=== PATIENT | male | born 1940 | race Caucasian/White ===

== ENCOUNTER → 2016-10-07 | Outpatient (CLI) | payer OTHER ==
[2014-11-01 09:46] VITALS: BP 133/70
[~2016-10-07] MED LIST: ACET325T21 PO; ALLO300T PO; AMOX500C PO; ASPI325T4 PO; ATOR10TA60 PO; FERR134T2 PO; FLUT10SP NS; GLUC1500 PO; LEVO750T31 PO; LISI10TA2 PO; MELO-150 PO; MULT-460 PO; OMEG300C PO; OMEP40CA5 PO; SIMV20TA3 PO; TEMA30CA PO; TEST200V3 IM; TRIA1TAB3 PO; ZOLP10TA4 PO
--- NOTE | 2016-10-07 16:05 | KCIC ---
PROCEDURE Chest 2 views. HISTORY Dyspnea on exertion. COMPARISON 05/19/2014. FINDINGS Mild opacity in the left base is most likely atelectasis or scarring. There are no confluent infiltrates. There is no pneumothorax or pleural effusion. The heart is not enlarged. The aorta is tortuous. There are bilateral total shoulder arthroplasties. IMPRESSION - No confluent infiltrates. Electronically signed by: Panfilo Hayden (Oct 07, 2016 15:59:45)
== END | disposition home or self-care (01) ==
LOC: KCIC 14:00
PROVIDERS: ATTEND Nurse Practitioner Family
DX: R06.09 Other forms of dyspnea (principal); Q25.46 Tortuous aortic arch
CPT/HCPCS: 71020

== ENCOUNTER → 2016-10-22 | Outpatient (CLI) | payer OTHER ==
[2014-11-01 09:46] VITALS: BP 133/70
--- NOTE | 2016-10-22 15:22 | CARD ---
APPROVED REPORT EXAM: Two-dimensional and M-mode echocardiogram with Doppler and color Doppler. Other Information Quality : GoodHR: 52bpm Rhythm : PVC's,Bradycardia INDICATION Dyspnea Fatigue Ventricular Bigeminy, RBBB 2D DIMENSIONS RVDd3.1 (2.9-3.5cm)Left Atrium(2D)4.2 (1.6-4.0cm) IVSd1.2 (0.7-1.1cm)Aortic Root(2D)3.3 (2.0-3.7cm) LVDd6.8 (3.9-5.9cm)LVOT Diameter2.4 (1.8-2.4cm) PWd1.3 (0.7-1.1cm)LVDs5.2 (2.5-4.0cm) FS (%) 23.0 %SV106.0 ml LVEF(%)45.0 (>50%) Aortic Valve AoV Peak Jeremy.202.1cm/sAoV VTI53.3cm AO Peak GR.16.3mmHgLVOT Peak Jeremy.94.4cm/s LVOT VTI 23.78cmAO Mean GR.11mmHg RUT (VMAX)1.34by3NGK (VTI)1.96cm2 Mitral Valve MV E Bseqqnkf24.2cm/sMV E Peak Gr.147mmHg MV DECEL [id number] A Ubotkshd39.7cm/s MV E Mean Gr.1mmHgMV DMI37ux E/A Ratio1.2MVA (PHT)2.61cm2 TDI E/Lateral E'8.5E/Medial E'11.3 Pulmonary Valve PV Peak Fuwmvgok34.2cm/sPV Peak Grad.4mmHg Tricuspid Valve TR P. Blbjmgzm566lc/sRAP KXBPLZVY9whOp TR Peak Gr.65kqMbOKCI59ypMy Pulmonary Vein S1 Ucgmjlmm60.8cm/sD2 Xewkkbas38.4cm/s PVa aibnnhty39zvxc LEFT VENTRICLE The Left Ventricle is mildly dilated. There is mild concentric left ventricular hypertrophy. Left jenny tricle systolic function is mildly impaired. The Ejection Fraction is 45%. There is global hypokinesi s of the left ventricle. Transmitral Doppler flow pattern is Grade II-pseudonormal filling dynamics. RIGHT VENTRICLE The right ventricle is normal size. There is normal right ventricular wall thickness. The right ventr icular systolic function is normal. ATRIA The left atrium is moderately dilated. The right atrium is mildly dilated. The interatrial septum is intact with no evidence for an atrial septal defect or patent foramen ovale as noted on 2-D or Dopple r imaging. AORTIC VALVE The aortic valve is mildly sclerotic. The aortic valve is trileaflet. Doppler and Color Flow revealed mild aortic regurgitation. There is no significant aortic valvular stenosis. MITRAL VALVE Mitral annular calcification is mild. The mitral valve leaflets are thickened. There is no evidence o f mitral valve prolapse. There is no mitral valve stenosis. Doppler and Color Flow revealed moderate mitral regurgitation. TRICUSPID VALVE Doppler and Color Flow revealed mild tricuspid regurgitation. There is mild pulmonary hypertension. T he PA pressure was estimated at 33 mmHg. PULMONIC VALVE The pulmonic valve is not well visualized. Doppler and Color Flow revealed no pulmonic valvular regur gitation. GREAT VESSELS The aortic root is normal in size. The ascending aorta is normal in size. The pulmonary artery is nor mal. The IVC is normal in size and collapses >50% with inspiration. PERICARDIAL EFFUSION There is no evidence of significant pericardial effusion. Critical Notification Critical Value: No <Conclusion> Left ventricle systolic function is mildly impaired. The Ejection Fraction is 45%. Transmitral Doppler flow pattern is Grade II-pseudonormal filling dynamics. The Left Ventricle is mildly dilated. The left atrium is moderately dilated. The right atrium is mildly dilated. Doppler and Color Flow revealed mild aortic regurgitation. The aortic valve is mildly sclerotic. The aortic valve is trileaflet. Doppler and Color Flow revealed moderate mitral regurgitation. Mitral annular calcification is mild. The mitral valve leaflets are thickened. Doppler and Color Flow revealed mild tricuspid regurgitation. There is mild pulmonary hypertension. The PA pressure was estimated at 33 mmHg. The pulmonic valve is not well visualized. There is no evidence of significant pericardial effusion.
== END | disposition home or self-care (01) ==
LOC: ECHO 09:09
PROVIDERS: ATTEND Internal Medicine Cardiovascular Disease
DX: R53.83 Other fatigue (principal); R06.02 Shortness of breath; I49.9 Cardiac arrhythmia, unspecified; I45.2 Bifascicular block; R06.00 Dyspnea, unspecified
CPT/HCPCS: 93225; 93306

== ENCOUNTER → 2016-11-14 | Outpatient (CLI) | payer OTHER ==
[2014-11-01 09:46] VITALS: BP 133/70
--- NOTE | 2016-11-18 10:20 | EKG ---
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
== END | disposition home or self-care (01) ==
LOC: EKG 08:49
PROVIDERS: ATTEND Internal Medicine Cardiovascular Disease
DX: I48.1 Persistent atrial fibrillation (principal); I49.5 Sick sinus syndrome
CPT/HCPCS: 93225

== ENCOUNTER → 2016-11-26 | Outpatient (CLI) | payer OTHER ==
[2014-11-01 09:46] VITALS: BP 133/70
[2016-11-26 15:44] LABS: BASO % 1 % (0-3); EOS % 5 % (0-3); HEMATOCRIT 47.2 % (39.0-53.0); HEMOGLOBIN 15.7 g/dL (13.0-17.5); LYMPH # 1.7 x10^3/uL (1.0-4.8); LYMPH % 28 % (24-48); MEAN CORPUSCULAR HEMOGLOBIN 32 pg (25-35); MEAN CORPUSCULAR HGB CONC 33 g/dL (31-37); MEAN CORPUSCULAR VOLUME 95 fL (79-100); MONO % 12 % (0-9); NEUT % 54 % (31-73); PLATELET COUNT 138 x10^3/uL (140-400); RED BLOOD COUNT 4.99 x10^6/uL (4.30-5.70); RED CELL DISTRIBUTION WIDTH 15.7 % (11.5-14.5); WHITE BLOOD COUNT 5.9 x10^3/uL (4.0-11.0)
[2016-11-26 15:52] LABS: INR 1.2 (0.8-1.1)
== END | disposition home or self-care (01) ==
LOC: LAB 15:19
PROVIDERS: ATTEND Internal Medicine Cardiovascular Disease
DX: R53.83 Other fatigue (principal); R21 Rash and other nonspecific skin eruption
CPT/HCPCS: 36415; 85027; 85610; 85651; 85730

== ENCOUNTER 2017-04-12 07:37 | Emergency (ER) | payer OTHER ==
[~2017-04-12] VITALS: Ht 190.5 cm; Wt 117.9 kg
[~2017-04-12 07:37] MED LIST changes: -ASPI325T4 PO; +ASPI325T8 PO; -MELO-150 PO; +MELO15TA23 PO
[2017-04-12 07:45] VITALS: BP 149/81
[2017-04-12] MEDS ORDERED: NAPR220C4 PO (08:13)
[2017-04-12] MEDS ORDERED: OMEG-97 PO (08:13)
[2017-04-12] MEDS ORDERED: ASPI-482 PO (08:13)
[2017-04-12] MEDS ORDERED: FLUT16SP NS (08:13)
[2017-04-12] MEDS ORDERED: LISI10TA2 PO (08:13)
[2017-04-12] MEDS ORDERED: TEMA30CA PO (08:13)
[2017-04-12] MEDS ORDERED: AMOX500C PO (08:13)
[2017-04-12] MEDS ORDERED: APIX5TAB PO (08:13)
[2017-04-12] MEDS ORDERED: PROP20TA PO (08:13)
--- NOTE | 2017-04-12 08:16 | PHYS DOC ---
Past Medical History Past Medical History: A-Fib, Arthritis, GERD, High Cholesterol, Hypertension, Kidney Stone, Other Additional Past Medical Histor: gout Past Surgical History: Knee Replacement, Other Additional Past Surgical Histo: back surgery, 2 shoulder replacements Alcohol Use: Heavy Additional Information: reports drinking 2 drinks every night Drug Use: None Adult General Chief Complaint Chief Complaint: FOOT INJURY PAIN [facility] HPI Is is a pleasant 76-year-old male with history of hypertension, high cholesterol , kidney stones requiring allopurinol treatment who presents with right foot pain that began yesterday after a long day of exercise and walking. He says he normally exercises 2-3 times a week walking [place] but yesterday after going to a car show at a private residence walking [employer] patient developed pain on his ankle specifically under the heel radiating into the arch of the foot. He denies any specific injury, denies any significant numbness or tingling, denies any circulatory color changes or localized pain other than what is described in his history. He describes the same as sharp and stabbing lancinating in nature lasting 3-5 seconds in waves. He denies any localized swelling, denies any rash, he does have a history of chronic arthritis within big toe and ankle. This is different. He denies any fevers, chills, recent travel outside the country, swelling in his calves or pain in his lower legs. Review of Systems Review of Systems Constitutional: Denies fever or chills [] Eyes: Denies change in visual acuity, redness, or eye pain [] HENT: Denies nasal congestion or sore throat [] Respiratory: Denies cough or shortness of breath [] Cardiovascular: No additional information not addressed in HPI [] GI: Denies abdominal pain, nausea, vomiting, bloody stools or diarrhea [] : Denies dysuria or hematuria [] Musculoskeletal: Complains of chronic lower back pain chronic joint pain in his shoulders bilaterally and his right knee. Integument: Denies rash or skin lesions [] Neurologic: Denies headache, focal weakness or sensory changes [] Endocrine: Denies polyuria or polydipsia [] Allergies Allergies Allergies Coded Allergies Type Severity Reaction Last Updated Verified No Known Drug Allergies 10/16/14 No Physical Exam Physical Exam This patient's vital signs been reviewed hypertension noted without any other abnormality. Constitutional: Well developed, well nourished, no acute distress, non-toxic appearance. [] Cardiovascular:Heart rate regular rhythm, no murmur [] Lungs & Thorax: Bilateral breath sounds clear to auscultation [] Abdomen: Bowel sounds normal, soft, no tenderness, no masses, no pulsatile masses. [] Skin: Warm, dry, no erythema, no rash. Patient has brisk capillary refill +2 brisk peripheral pulses at the dorsalis pedis and posterior tibialis and popliteal artery. Skin is warm without cyanosis. Extremities: No tenderness, no cyanosis, no clubbing, no edema. No significant decreased range of motion in the foot secondary to pain on plantar flexion. Pain is elicited along the plantar fascia from the heel to the base of the fourth metatarsal. There is no obvious swelling, there is no obvious redness or rash. Patient has no Homans sign no evidence of swelling within the gastrocnemius muscles bilaterally. Neurologic: Alert and oriented X 3, normal motor function, normal sensory function, no focal deficits noted. [] Psychologic: Affect normal, judgement normal, mood normal. [] Current Patient Data Vital Signs Vital Signs Date Time Temp Pulse Resp B/P (MAP) Pulse Ox O2 Delivery O2 Flow Rate FiO2 04/12/17 07:45 98.2 70 20 149/81 (103) 96 Room Air 98.2 EKG EKG [] Radiology/Procedures Radiology/Procedures [] [address] [place] [address] IMAGING REPORT Signed PATIENT: VERNELL AGUDELO ACCOUNT: [id number] : 1940 LOCATION: ER AGE: 76 SEX: M EXAM STATUS: REG ER ORD. PHYSICIAN: KONRAD SIMMONS MD REASON: foot pain PROCEDURE: ANKLE RIGHT 3V Right ankle 3 views. History: Pain 3 views were taken of the right ankle. There is extensive vascular calcification. There is no fracture or bony destructive process at the ankle. Impression: 1. No acute osseous abnormality noted at the right ankle. DICTATED and SIGNED BY: VERNELL DUNBAR MD DATE: 04/12/17 0830 CC: KONRAD SIMMONS MD; ABIODUN LYMAN MD ~ IMAGING REPORT Signed PATIENT: VERNELL AGUDELO ACCOUNT: [id number] : 1940 LOCATION: ER AGE: 76 SEX: M EXAM STATUS: REG ER ORD. PHYSICIAN: KONRAD SIMMONS MD REASON: foot pain PROCEDURE: FOOT RIGHT 3V Right foot 3 views. History: Foot pain, no injury 3 views were taken of the right foot. There is arthritis at the first metatarsal phalangeal joint with spurring and joint space narrowing. There is no fracture or bony destructive process. There is vascular calcification. Impression: 1. Arthritis first metatarsal phalangeal joint. 2. No fracture or other acute osseous abnormality. DICTATED and SIGNED BY: VERNELL DUNBAR MD DATE: 04/12/17828 CC: KONRAD SIMMONS MD; ABIODUN LYMAN MD ~ [address] [facility] [place] [address] IMAGING REPORT Signed PATIENT: VERNELL AGUDELO ACCOUNT: [id number] : 1940 LOCATION: ER AGE: 76 SEX: M EXAM STATUS: REG ER ORD. PHYSICIAN: KONRAD SIMMONS MD REASON: non traumatic right foot pain PROCEDURE: DUPLEX LOWER EX ARTERIAL RIGHT Right lower extremity arterial Doppler study. History: Nontraumatic right foot pain. Duplex ultrasound was used to evaluate the arteries of the right lower extremity. Real-time imaging, color-flow imaging and spectral Doppler with velocity determinations were utilized. Velocity in the common femoral artery was 73 cm/s with a normal triphasic waveform. There is flow in the deep femoral artery with a velocity of 73 cm/s with a normal triphasic waveform. Triphasic waveforms are noted throughout the femoral artery with a velocity of 77 cm/s in the distal femoral artery. Popliteal artery appeared patent with a normal triphasic waveform with a velocity of 93 cm/s. There is a triphasic waveform with a velocity of 125 cm/s in the distal posterior tibial artery. Peroneal artery had a triphasic waveform. There is a triphasic waveform at the anterior tibial artery with a velocity of 117 cm/s. There is a triphasic waveform at the dorsalis pedis artery with velocity 114 cm/s. Impression: 1. Normal arterial Doppler of the right lower extremity without evidence of severe stenosis or occlusive disease. DICTATED and SIGNED BY: VERNELL DUNBAR MD DATE: 04/12/17939 CC: KONRAD SIMMONS MD; ABIODUN LYMAN MD ~ Course & Med Decision Making Course & Med Decision Making Pertinent Labs and Imaging studies reviewed. (See chart for details) and sitting patient's prior medical problems history of nontraumatic foot pain we will conduct x-rays of the ankle and foot. I will also document an SUSAN to ensure that there is no vascular compromise lumen arterial origin. Doubt DVT as patient is oriented blood thinning medication prescribed at age or fibrillation. Patient has good circulation on my examination with good capillary refill, brisk peripheral pulses documented on my physical exam. Patient also demonstrates normal skin tone without rash. [] IMAGING REPORT Signed PATIENT: VERNELL AGUDELO ACCOUNT: [id number] : 1940 LOCATION: ER AGE: 76 SEX: M EXAM STATUS: REG ER ORD. PHYSICIAN: KONRAD SIMMONS MD REASON: foot pain PROCEDURE: FOOT RIGHT 3V Right foot 3 views. History: Foot pain, no injury 3 views were taken of the right foot. There is arthritis at the first metatarsal phalangeal joint with spurring and joint space narrowing. There is no fracture or bony destructive process. There is vascular calcification. Impression: 1. Arthritis first metatarsal phalangeal joint. 2. No fracture or other acute osseous abnormality. DICTATED and SIGNED BY: VERNELL DUNBAR MD DATE: 04/12/17828 CC: KONRAD SIMMONS MD; ABIODUN LYMAN MD ~ Time is now 9:55 AMPatient tells me that their symptoms given during CC are improved. I reviewed radiology reports with patient and family at the bedside and talked to them about the differential diagnosis of my concern. There is no obvious signs of fracture but I'll place him in a hard shoe and given some crutches to get off the foot and refer him to podiatry. He may be suffering from early plantar fasciitis. May benefit from a short course of anti- inflammatories and some of her breakthrough pain. I doubt compartment syndrome or DVT or arterial compromise. Impression: Right foot pain of unclear etiology possibly plantar fasciitis. Disposition: PCP follow-up in 24-48 hours for repeat evaluation as well as referral to podiatry. There is presently no evidence of vascular compromise on this evaluation. Dragon Disclaimer Dragon Disclaimer This electronic medical record was generated, in whole or in part, using a voice recognition dictation system. Departure Departure Impression: Primary Impression: Acute pain of right foot Additional Impressions: Arch pain of right foot Plantar fasciitis of right foot Referrals: ABIODUN LYMAN MD (PCP) Patient Instructions: Foot Sprain, Plantar Fasciitis Additional Instructions: Please use the hard shoe and crutches to get off the foot. I would advise a follow-up with her primary care doctor for referral to podiatry for continued management of her symptoms. Return if there is any new or increasing symptoms or he have any questions or concerns. Scripts Tramadol Hcl/Acetaminophen (TRAMADOL-ACETAMINOPHN 37.5-325) 1 Each Tablet 1-2 TAB PO Q4-6HRS, #10 TAB Prov: KONRAD SIMMONS MD 04/12/17 Problem Qualifiers KONRAD SIMMONS MD Apr 12, 2017 08:16
--- NOTE | 2017-04-12 08:33 | RAD ---
Right foot 3 views. History: Foot pain, no injury 3 views were taken of the right foot. There is arthritis at the first metatarsal phalangeal joint with spurring and joint space narrowing. There is no fracture or bony destructive process. There is vascular calcification. Impression: 1. Arthritis first metatarsal phalangeal joint. 2. No fracture or other acute osseous abnormality.
--- NOTE | 2017-04-12 08:33 | RAD ---
Right ankle 3 views. History: Pain 3 views were taken of the right ankle. There is extensive vascular calcification. There is no fracture or bony destructive process at the ankle. Impression: 1. No acute osseous abnormality noted at the right ankle.
--- NOTE | 2017-04-12 09:46 | RAD ---
Right lower extremity arterial Doppler study. History: Nontraumatic right foot pain. Duplex ultrasound was used to evaluate the arteries of the right lower extremity. Real-time imaging, color-flow imaging and spectral Doppler with velocity determinations were utilized. Velocity in the common femoral artery was 73 cm/s with a normal triphasic waveform. There is flow in the deep femoral artery with a velocity of 73 cm/s with a normal triphasic waveform. Triphasic waveforms are noted throughout the femoral artery with a velocity of 77 cm/s in the distal femoral artery. Popliteal artery appeared patent with a normal triphasic waveform with a velocity of 93 cm/s. There is a triphasic waveform with a velocity of 125 cm/s in the distal posterior tibial artery. Peroneal artery had a triphasic waveform. There is a triphasic waveform at the anterior tibial artery with a velocity of 117 cm/s. There is a triphasic waveform at the dorsalis pedis artery with velocity 114 cm/s. Impression: 1. Normal arterial Doppler of the right lower extremity without evidence of severe stenosis or occlusive disease.
[2017-04-12] MEDS ORDERED: TRAM1TAB4 PO (09:59)
== END 2017-04-12 10:24 | disposition home or self-care (01) ==
LOC: ER 07:37
DX: M72.2 Plantar fascial fibromatosis (principal); I10 Essential (primary) hypertension; I48.91 Unspecified atrial fibrillation; M10.9 Gout, unspecified; K21.9 Gastro-esophageal reflux disease without esophagitis; E78.00 Pure hypercholesterolemia, unspecified; F10.10 Alcohol abuse, uncomplicated; M19.90 Unspecified osteoarthritis, unspecified site; G89.29 Other chronic pain; Z87.442 Personal history of urinary calculi; Z96.659 Presence of unspecified artificial knee joint
CPT/HCPCS: 73610; 73630; 93926; 99284

== ENCOUNTER 2017-04-20 14:30 | Inpatient (IN) | payer OTHER ==
[~2017-04-20] VITALS: Ht 190.5 cm; Wt 116.6 kg
[~2017-04-20 14:30] MED LIST changes: +APIX5TAB PO; +ASPI-482 PO; +FLUT16SP NS; +NAPR220C4 PO; +OMEG-97 PO; +PROP20TA PO; +TRAM1TAB4 PO
[2017-04-20 15:40] VITALS: BP 113/90
[2017-04-20] MEDS ORDERED: oxyCODONE/APAP 5/325 1 TAB TABLET PO PRN (17:15)
[2017-04-20] MEDS ORDERED: NAPROXEN SODIUM 440 MG PO PRN (17:15)
[2017-04-20] MEDS ORDERED: COLCHICINE 0.6 MG TABLET PO ONE (17:30)
[2017-04-20] MEDS ORDERED: VANCOMYCIN 2 GM in IV NORMAL SALINE 500ML BAG 500 ML IV ONE (17:30)
[2017-04-20] MEDS: LISINOPRIL 10 MG TABLET PO SCH (17:50)
[2017-04-20] MEDS: PANTOPRAZOLE 40 MG TABLET.DR. PO SCH (17:52)
[2017-04-20 18:20] LABS: BASO # 0.1 x10^3/uL (0.0-0.2); BASO % 1 % (0-3); EOS % 1 % (0-3); HEMATOCRIT 43.3 % (39.0-53.0); HEMOGLOBIN 14.3 g/dL (13.0-17.5); LYMPH # 1.3 x10^3/uL (1.0-4.8); LYMPH % 15 % (24-48); MEAN CORPUSCULAR HEMOGLOBIN 32 pg (25-35); MEAN CORPUSCULAR HGB CONC 33 g/dL (31-37); MEAN CORPUSCULAR VOLUME 97 fL (79-100); MONO % 7 % (0-9); NEUT % 77 % (31-73); PLATELET COUNT 208 x10^3/uL (140-400); RED BLOOD COUNT 4.45 x10^6/uL (4.30-5.70); RED CELL DISTRIBUTION WIDTH 14.7 % (11.5-14.5); WHITE BLOOD COUNT 8.9 x10^3/uL (4.0-11.0)
--- NOTE | 2017-04-20 18:23 | EKG ---
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
[2017-04-20 18:36] VITALS: BP 113/90
[2017-04-20 18:42] LABS: ALBUMIN 2.5 g/dL (3.4-5.0); ALBUMIN/GLOBULIN RATIO 0.6 (1.0-1.7); C-REACTIVE PROTEIN 137.1 mg/L (0-3.3); CALCIUM 8.7 mg/dL (8.5-10.1); CREATININE 1.2 mg/dL (0.7-1.3); POTASSIUM 3.9 mmol/L (3.5-5.1); TOTAL BILIRUBIN 0.5 mg/dL (0.2-1.0); URIC ACID 3.1 mg/dL (3.5-7.2)
[2017-04-20] MEDS: VANCOMYCIN PER PHARMACY MC PRN (18:50)
[2017-04-20 19:00] VITALS: BP 132/70
--- NOTE | 2017-04-20 19:02 | PDOC1 ---
History and Physical Date of Admission Date of Admission DATE: 04/20/17 TIME: 18:54 Identification/Chief Complaint Chief Complaint r ankle pain Problems: Source Source: Chart review, Patient History of Present Illness History of Present Illness pt sent from Dr. Mary meehan for right ankle pain and redness with worsening swelling. PT had acute right ankle pain last week, seen in clinic then, aspirated joint , started on colchicine and steroids, and abx given. Hx of gout, flare seemed likely, now returns with worsening pain and swelling and redness to the right ankle. Pain Ok at rest, but severe 8/10 pain when standing and marked difficulty walking, no fevers or chills or sweats Past Medical History Cardiovascular: HTN GI: GERD Musculoskeletal: low back pain Rheumatologic: Gout Family History Family History: Coronary Artery Disease Social History Smoke: No ALCOHOL: none Drugs: None Current Medications Current Medications Current Medications Acetaminophen (Tylenol) 650 mg QHS PO ; Start 04/20/17 at 21:00 Apixaban (Eliquis) 5 mg BID PO ; Start 04/20/17 at 21:00 Aspirin (Ecotrin) 81 mg DAILY PO ; Start 04/21/17 at 09:00 Atorvastatin Calcium (Lipitor) 10 mg QHS PO ; Start 04/20/17 at 21:00 Fluticasone Propionate (Flonase) 2 spray DAILY NS ; Start 04/21/17 at 09:00 Lisinopril (Prinivil) 10 mg DAILY PO Last administered on 04/20/17 17:50; Start 04/20/17 at 17:30 Temazepam (Restoril) 30 mg QHS PO ; Start 04/20/17 at 21:00 Meloxicam (Mobic) 15 mg DAILY PO ; Start 04/21/17 at 09:00 Multivitamins (Thera M Plus) 1 tab DAILY PO ; Start 04/21/17 at 09:00 Non-Formulary Medication 440 mg QHS PRN PO PAIN; Start 04/20/17 at 17:15; Status UNV Fish Oil (Fish Oil) 1,000 mg BID PO ; Start 04/20/17 at 21:00 Pantoprazole Sodium (Protonix) 40 mg DAILYAC PO Last administered on 04/20/17 17:52; Start 04/20/17 at 17:30 Propranolol HCl (Inderal) 20 mg BID PO ; Start 04/20/17 at 21:00 Vancomycin HCl (Vanco Per Pharmacy) 1 each PRN DAILY PRN MC SEE COMMENTS Last administered on 04/20/17 18:50; Start 04/20/17 at 17:15 Colchicine (Colcrys) 0.6 mg 1X ONCE PO Last administered on 04/20/17 17:50; Start 04/20/17 at 17:30; Stop 04/20/17 at 17:31; Status DC Colchicine (Colcrys) 0.6 mg DAILY PO ; Start 04/21/17 at 09:00 Oxycodone/ Acetaminophen (Percocet 5/325) 1 tab PRN Q4HRS PRN PO PAIN Last administered on 04/20/17 17:53; Start 04/20/17 at 17:15 Vancomycin HCl 2 gm/Sodium Chloride 500 ml @ 250 mls/hr 1X ONCE IV Last administered on 04/20/17 17:54; Start 04/20/17 at 17:30; Stop 04/20/17 at 19:29 Vancomycin HCl 1.75 gm/Sodium Chloride 500 ml @ 250 mls/hr Q12H IV ; Start at 06:00 Vancomycin HCl 1 each 1X ONCE MC ; Start 04/22/17 at 05:30; Stop 04/22/17 at 05 :31 Active Scripts Active Tramadol-Acetaminophn 37.5-325 (Tramadol Hcl/Acetaminophen) 1 Each Tablet 1-2 Tab PO Q4-6HRS Reported Fluticasone Propionate Nasal Gooding (Fluticasone Propionate) 16 Gm Gooding.susp 2 Gooding NS DAILY Eliquis (Apixaban) 5 Mg Tablet 5 Mg PO BID Temazepam 30 Mg Capsule 1 Cap PO QHS Amoxicillin 500 Mg Capsule 3 Cap PO 1X Aleve (Naproxen Sodium) 220 Mg Capsule 440 Mg PO QHS PRN Propranolol Hcl 20 Mg Tablet 1 Tab PO BID Lisinopril 10 Mg Tablet 1 Tab PO DAILY [facility] Fish Oil 1,200 Mg Softgel ([place]pton-3 Fatty Acids/Fish Oil) 1 Each Capsule 1 Each PO BID Aspir 81 (Aspirin) 81 Mg Tablet.dr 1 Tab PO DAILY Meloxicam 15 Mg Tablet 15 Mg PO DAILY Last dose given: 9:00 a.m. (celebrex) Next dose due: 11-02-14 9:00 a.m. Atorvastatin Calcium 10 Mg Tablet 10 Mg PO DAILY Last dose given: 10-31-14 Next dose due: tonight Glucosamine Hcl 1,500 Mg Tablet 1,500 Mg PO DAILY Not taken while in hosp. May resume at home as directed Omeprazole 40 Mg Capsule.dr 40 Mg PO BID Last dose given: 7:00 a.m. Next dose due: 11-02-14 7:00 a.m. Testosterone Cypionate 200 Mg/1 Ml Vial 200 Mg IM Q2WKS Not taken while in hosp. May resume at home as directed Multiple Vitamin (Multivitamin With Minerals) 1 Each Tablet 1 Each PO DAILY Last dose given: 9:00 a.m. Next dose due: 11-02-14 9:00 a.m. Allopurinol 300 Mg Tablet 300 Mg PO DAILY Last dose given: 9:00 a.m. Next dose due: 11-02-13 9:00 a.m. Acetaminophen 325 Mg Tablet 650 Mg PO QHS Not taken while in hosp May resume at home as directed as needed. Allergies Allergies: Coded Allergies: No Known Drug Allergies (Unverified , 10/16/14) ROS General: No: Chills, Night Sweats, Fatigue, Malaise, Appetite, Other PSYCHOLOGICAL ROS: No: Anxiety, Behavioral Disorder, Concentration difficultie , Decreased libido, Depression, Disorientation, Hallucinations, Hostility, Irritablity, Memory difficulties, Mood Swings, Obsessive thoughts, Other Eyes: No Blurry vision, No Decreased vision, No Double vision, No Dry eyes, No Excessive tearing, No Eye Pain, No Itchy Eyes, No Loss of vision, No Photophobia , No Scotomata, No Uses contacts, No Uses glasses, No Other HEENT: No: Heacaches, Visual Changes, Hearing change, Nasal congestion, Nasal discharge, Oral lesions, Sinus pain, Sore Throat, Epistaxis, Sneezing, Snoring, Tinnitus, Vertigo, Vocal changes, Other Respiratory: No: Cough, Hemoptysis, Orthopnea, Pleuritic Pain, Shortness of breath, SOB with excertion, Sputum Changes, Stridor, Tachypnea, Wheezing, Other Cardiovascular: No Chest Pain, No Palpitations, No Orthopnea, No Paroxysmal Noc. Dyspnea, No Edema, No Lt Headedness, No Other Gastrointestinal: No Nausea, No Vomiting, No Abdominal Pain, No Diarrhea, No Constipation, No Melena, No Hematochezia, No Other Genitourinary: No Dysuria, No Frequency, No Incontinence, No Hematuria, No Retention, No Discharge, No Urgency, No Pain, No Flank Pain, No Other, No , No , No , No , No , No , No Musculoskeletal: Yes Gait Disturbance, Yes Joint Pain, Yes Joint Stiffness Neurological: Yes Gait Disturbance, No Behavorial Changes, No Bowel/Bladder ControlChng, No Confusion, No Headaches, No Impaired Coord/balance, No Memory Loss, No Numbness/Tingling, No Seizures, No Speech Problems, No Tremors, No Visual Changes, No Weakness, No Other Skin: No Dry Skin, No Eczema, No Hair Changes, No Lumps, No Mole Changes, No Mottling, No Nail Changes, No Pruritus, No Rash, No Skin Lesion Changes, No Other, No Acne Physical Exam General: Alert, Oriented X3, Cooperative HEENT: Atraumatic, PERRLA Lungs: Clear to auscultation Heart: S1S2, irregularly irregular Abdomen: Normal bowel sounds, Soft Extremities: No clubbing, No edema, Normal pulses Skin: No rashes, No breakdown Neuro: Normal speech, Sensation intact Psych/Mental Status: Mental status NL, Mood NL Vitals Vitals Vital Signs Date Time Temp Pulse Resp B/P (MAP) Pulse Ox O2 Delivery O2 Flow Rate FiO2 04/20/17 18:36 97.6 53 18 113/90 (98) 96 Room Air 97.6 Labs Labs Laboratory Tests Test 04/20/17 18:00 White Blood Count 8.9 x10^3/uL (4.0-11.0) Red Blood Count 4.45 x10^6/uL (4.30-5.70) Hemoglobin 14.3 g/dL (13.0-17.5) Hematocrit 43.3 % (39.0-53.0) Mean Corpuscular Volume 97 fL (79-100) Mean Corpuscular Hemoglobin 32 pg (25-35) Mean Corpuscular Hemoglobin Concent 33 g/dL (31-37) Red Cell Distribution Width 14.7 % (11.5-14.5) Platelet Count 208 x10^3/uL (140-400) Neutrophils (%) (Auto) 77 % (31-73) Lymphocytes (%) (Auto) 15 % (24-48) Monocytes (%) (Auto) 7 % (0-9) Eosinophils (%) (Auto) 1 % (0-3) Basophils (%) (Auto) 1 % (0-3) Neutrophils # (Auto) 6.8 x10^3uL (1.8-7.7) Lymphocytes # (Auto) 1.3 x10^3/uL (1.0-4.8) Monocytes # (Auto) 0.6 x10^3/uL (0.0-1.1) Eosinophils # (Auto) 0.1 x10^3/uL (0.0-0.7) Basophils # (Auto) 0.1 x10^3/uL (0.0-0.2) Sodium Level 139 mmol/L (136-145) Potassium Level 3.9 mmol/L (3.5-5.1) Chloride Level 102 mmol/L (98-107) Carbon Dioxide Level 28 mmol/L (21-32) Anion Gap 9 (6-14) Blood Urea Nitrogen 23 mg/dL (8-26) Creatinine 1.2 mg/dL (0.7-1.3) Estimated GFR (Cockcroft-Gault) 59.0 BUN/Creatinine Ratio 19 (6-20) Glucose Level 139 mg/dL (70-99) Uric Acid 3.1 mg/dL (3.5-7.2) Calcium Level 8.7 mg/dL (8.5-10.1) Total Bilirubin 0.5 mg/dL (0.2-1.0) Aspartate Amino Transf (AST/SGOT) 16 U/L (15-37) Alanine Aminotransferase (ALT/SGPT) 21 U/L (16-63) Alkaline Phosphatase 53 U/L (46-116) C-Reactive Protein, Quantitative 137.1 mg/L (0-3.3) Total Protein 7.0 g/dL (6.4-8.2) Albumin 2.5 g/dL (3.4-5.0) Albumin/Globulin Ratio 0.6 (1.0-1.7) Laboratory Tests Test 04/20/17 18:00 White Blood Count 8.9 x10^3/uL (4.0-11.0) Red Blood Count 4.45 x10^6/uL (4.30-5.70) Hemoglobin 14.3 g/dL (13.0-17.5) Hematocrit 43.3 % (39.0-53.0) Mean Corpuscular Volume 97 fL (79-100) Mean Corpuscular Hemoglobin 32 pg (25-35) Mean Corpuscular Hemoglobin Concent 33 g/dL (31-37) Red Cell Distribution Width 14.7 % (11.5-14.5) Platelet Count 208 x10^3/uL (140-400) Neutrophils (%) (Auto) 77 % (31-73) Lymphocytes (%) (Auto) 15 % (24-48) Monocytes (%) (Auto) 7 % (0-9) Eosinophils (%) (Auto) 1 % (0-3) Basophils (%) (Auto) 1 % (0-3) Neutrophils # (Auto) 6.8 x10^3uL (1.8-7.7) Lymphocytes # (Auto) 1.3 x10^3/uL (1.0-4.8) Monocytes # (Auto) 0.6 x10^3/uL (0.0-1.1) Eosinophils # (Auto) 0.1 x10^3/uL (0.0-0.7) Basophils # (Auto) 0.1 x10^3/uL (0.0-0.2) Sodium Level 139 mmol/L (136-145) Potassium Level 3.9 mmol/L (3.5-5.1) Chloride Level 102 mmol/L (98-107) Carbon Dioxide Level 28 mmol/L (21-32) Anion Gap 9 (6-14) Blood Urea Nitrogen 23 mg/dL (8-26) Creatinine 1.2 mg/dL (0.7-1.3) Estimated GFR (Cockcroft-Gault) 59.0 BUN/Creatinine Ratio 19 (6-20) Glucose Level 139 mg/dL (70-99) Uric Acid 3.1 mg/dL (3.5-7.2) Calcium Level 8.7 mg/dL (8.5-10.1) Total Bilirubin 0.5 mg/dL (0.2-1.0) Aspartate Amino Transf (AST/SGOT) 16 U/L (15-37) Alanine Aminotransferase (ALT/SGPT) 21 U/L (16-63) Alkaline Phosphatase 53 U/L (46-116) C-Reactive Protein, Quantitative 137.1 mg/L (0-3.3) Total Protein 7.0 g/dL (6.4-8.2) Albumin 2.5 g/dL (3.4-5.0) Albumin/Globulin Ratio 0.6 (1.0-1.7) VTE Prophylaxis Ordered VTE Prophylaxis Devices: Yes VTE Pharmacological Prophylaxi: No Assessment/Plan Assessment/Plan acute right ankle pain with swelling and redness concern for septic joint is high labs to include ESR and CRP, check uric acid start IV vanco check MRI Hx Gout HTn, Afib, hold eliquis, may need surgery mod malnutrition w/ hypoalbuminemia, in obesity, BMI 32 will check urine for protein wide QRS on ekg, w/ htn and afib, consult CV admit MIGDALIA CHERY MD Apr 20, 2017 19:02
[2017-04-20] MEDS ORDERED: APIXABAN 5 MG TABLET. PO SCH (21:00)
[2017-04-20] MEDS: PROPRANOLOL 10 MG TABLET. PO SCH (21:39)
[2017-04-20] MEDS: OMEGA-3 FATTY ACIDS/FISH OIL 1,000 MG CAPSULE. PO SCH (21:39)
[2017-04-20] MEDS: ATORVASTATIN CALCIUM 10 MG TABLET. PO SCH (21:40)
[2017-04-20] MEDS: TEMAZEPAM 15 MG CAPSULE PO SCH (21:40)
[2017-04-20] MEDS: ACETAMINOPHEN 325 MG TABLET. PO SCH (21:40)
[2017-04-20 23:00] VITALS: BP 122/59
--- NOTE | 2017-04-21 02:36 | ACF ---
Admission Forms Criteria MUSCULOSKELETAL DISEASE GRG Clinical Indications for Admission to Inpatient Care (Place 'X' for any and all applicable criteria): Hospital admission is needed for appropriate care of the patient because of 1 or more of the following: [ ]I. Fracture, dislocation, or other musculoskeletal injury requiring inpatient care(medical) as indicated by 1 or more of the following(4)(5)(6)(7) [ ]a) Vertebral fracture requiring observation for instability or neurologic compromise (8) [ ]b) Compartment syndrome (proven or cannot be ruled out during observation level of care) (9) [ ]c) Limb-threatening injury [ ]d) Major injury requiring inpatient stabilization such as traction initiation or external fixation before internal fixation or closure of complex or open fracture [ ]e) Major injury requiring inpatient treatment after emergency or observation level care (as appropriate) [ ]f) Severe pain requiring acute inpatient management [ ]g) Injury with suspicion of abuse or neglect (eg., child, dependent elderly) [ ]II. Newly diagnosed or suspected bone, joint, or orthopedic device infection (e.g., osteomyelitis, septic arthritis) needing 1 or more of the following(1)(2)(3) [ ]a) IV antibiotics that cannot be initiated in other than inpatient setting (e.g., patient too unstable or home infusion not available) [ ]b) Device removal or replacement [ ]c) Bone or soft tissue debridement [ ]d) Joint drainage (drain placement or repetitive aspirations) [ ]III. Severe rheumatologic disease (e.g., systemic lupus erythematosus, rheumatoid arthritis) with complications or comorbidities (Also use Optimal Recovery Care Criteria or General Recovery Criteria as appropriate on the basis of predominant condition), including 1 or more of the following( 10)(11)(12)(13) [ ]a) Severe infection (e.g., INSPECTOR TUBES infection, sepsis) (14) [ ]b) Respiratory complications, including 1 or more of the following : [ ]i) Pleural effusion with respiratory compromise [ ]ii) Pulmonary hypertension with congestive failure [ ]iii) Respiratory failure [ ]iv) Pulmonary hemorrhage (15) [ ]c) Hematologic disease, including 1 or more of the following: [ ]i) Coagulopathy with bleeding [ ]ii) Thrombosis with hypercoagulable state [ ]iii) Thrombotic thrombocytopenic purpura [ ]d) Cerebritis with seizures, psychosis, or other severe abnormalities [ ]e) Vertebral destruction with monitoring needed for cervical myelopathy& possible respiratory compromise [ ]f) Exacerbation that requires inpatient treatment (e.g., intravenous immunosuppression) (16) [ ]g) Acute renal failure [ ]h) Cerebritis with seizures, psychosis, Altered mental status, or other neurologic abnormalities [ ]i) Pericardial effusion with tamponade [ ]j) Vertebral destruction, with monitoring needed for cervical myelopathy and possible respiratory compromise [ ]IV. Severe vasculitis with complications or comorbidities (Also use Optimal Recovery Care Criteria General Recovery Criteria as appropriate on the basis of predominant condition), including 1 or more of the following(11)(12)(17)(18)(19)(20) [ ]a) Exacerbation that requires inpatient treatment (e.g., intravenous immunosuppression) (19)(21) [ ]b) Pulmonary hemorrhage (15) [ ]c) INSPECTOR TUBES vasculitis with seizures, psychosis, Altered mental status that is severe or persistent, or other severe abnormalities (22) [ ]d) Cerebral infarction [ ]e) Gastrointestinal ischemia [ ]f) Gangrene or threatened amputation [ ]g) Renal failure (16) [ ]h) Other significant complications of vasculitis ( eg., tissue or organ ischemia, organ dysfunction ) [ ]V. Severe myopathy as indicated by 1 or more of the following (28)(29) [ ]a) New onset of airway compromise or inability to swallow [ ]b) Respiratory deterioration with observation needed for impending respiratory failure [ ]c) Exacerbation that requires inpatient treatment (e.g., intravenous immunosuppression) [ ]. Severe crystal gout (arthropathy) indicated by 1 or more of the following (23)(24) [ ]a) Severe pain requiring acute inpatient management [ ]b) Exacerbation that requires inpatient treatment (e.g., intravenous treatment) [ ]VII.Rhabdomyolysis and 1 or more of the following (25)(26)(27) [ ]a) Acute renal failure [ ]b) Need for intravenous hydration after emergency or observation level care (as appropriate) [ ]c) Inability to maintain oral hydration [ ]d) Change in mental status [ ]e) Electrolyte abnormality that remains after emergency or observation level care (as appropriate) [ ]VIII Post amputation complication, as indicated by ANY ONE of the following [ ]a) Infection [ ]b) Dehiscence [ ]c) Myodesis failure [X]IX. Severe pain requiring acute inpatient management due to musculoskeletal condition [ ]X. Musculoskeletal Disease and ALL of the following: [ ]a) Symptom or finding for which emergency and observation care have failed or are not considered appropriate (Use General Criteria: Observation Care as appropriate) [ ]b) Presence of ANY ONE of the following [ ]i) A General Admission Criteria [ ]ii) A Pediatric General Admission Criteria The original [facility] content created by [facility] has been revised. The portions of the content which have been revised are identified through the use of italic text or in bold, and [facility] has neither reviewed nor approved the modified material. All other unmodified content is copyright [facility]. Please see references footnoted in the original [facility] edition 2016 Admission Criteria Met?: Yes SHANTANU MUÑOZ Apr 21, 2017 02:36
[2017-04-21 03:00] VITALS: BP 153/78
[2017-04-21 03:19] LABS: BILIRUBIN,URINE NEGATIVE (NEG); GLUCOSE,URINE NEGATIVE (NEG); NITRITE,URINE NEGATIVE (NEG); PROTEIN,URINE NEGATIVE (NEG-TRACE); UROBILINOGEN,URINE 0.2 mg/dL (0.2 mg/dL)
[2017-04-21 03:28] LABS: BACTERIA,URINE 0 /HPF (0-FEW); RBC,URINE 0 /HPF (0-2); SQUAMOUS EPITHELIAL CELL,UR OCC /LPF
[2017-04-21] MEDS: VANCOMYCIN 1.75 GM in IV NORMAL SALINE 500ML BAG 500 ML IV SCH ×2 (06:06→17:38)
[2017-04-21] MEDS: PANTOPRAZOLE 40 MG TABLET.DR. PO SCH (06:12)
[2017-04-21 07:00] VITALS: BP 143/93
[2017-04-21] MEDS: COLCHICINE 0.6 MG TABLET PO SCH (08:51)
[2017-04-21] MEDS: MULTIVITAMIN with MINERAL TABLET. PO SCH (08:51)
[2017-04-21] MEDS: LISINOPRIL 10 MG TABLET PO SCH (08:52)
[2017-04-21] MEDS: PROPRANOLOL 10 MG TABLET. PO SCH ×2 (08:52→21:56)
[2017-04-21] MEDS: ASPIRIN ENTERIC COATED 81 MG TABLET.DR. PO SCH (08:54)
[2017-04-21] MEDS: OMEGA-3 FATTY ACIDS/FISH OIL 1,000 MG CAPSULE. PO SCH ×2 (08:54→21:55)
[2017-04-21] MEDS: FLUTICASONE 50MCG/NASAL SPRAY 16GM BOTTLE. NS SCH (08:54)
[2017-04-21] MEDS: MELOXICAM 7.5 MG TABLET PO SCH (08:54)
[2017-04-21 11:00] VITALS: BP 128/68
--- NOTE | 2017-04-21 12:20 | PDOC ---
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0-53.0) Mean Corpuscular Volume 97 fL (79-100) Mean Corpuscular Hemoglobin 32 pg (25-35) Mean Corpuscular Hemoglobin Concent 33 g/dL (31-37) Red Cell Distribution Width 14.7 % (11.5-14.5) Platelet Count 208 x10^3/uL (140-400) Neutrophils (%) (Auto) 77 % (31-73) Lymphocytes (%) (Auto) 15 % (24-48) Monocytes (%) (Auto) 7 % (0-9) Eosinophils (%) (Auto) 1 % (0-3) Basophils (%) (Auto) 1 % (0-3) Neutrophils # (Auto) 6.8 x10^3uL (1.8-7.7) Lymphocytes # (Auto) 1.3 x10^3/uL (1.0-4.8) Monocytes # (Auto) 0.6 x10^3/uL (0.0-1.1) Eosinophils # (Auto) 0.1 x10^3/uL (0.0-0.7) Basophils # (Auto) 0.1 x10^3/uL (0.0-0.2) Erythrocyte Sedimentation Rate 50 (0-15) Sodium Level 139 mmol/L (136-145) Potassium Level 3.9 mmol/L (3.5-5.1) Chloride Level 102 mmol/L (98-107) Carbon Dioxide Level 28 mmol/L (21-32) Anion Gap 9 (6-14) Blood Urea Nitrogen 23 mg/dL (8-26) Creatinine 1.2 mg/dL (0.7-1.3) Estimated GFR (Cockcroft-Gault) 59.0 BUN/Creatinine Ratio 19 (6-20) Glucose Level 139 mg/dL (70-99) Uric Acid 3.1 mg/dL (3.5-7.2) Calcium Level 8.7 mg/dL (8.5-10.1) Total Bilirubin 0.5 mg/dL (0.2-1.0) Aspartate Amino Transf (AST/SGOT) 16 U/L (15-37) Alanine Aminotransferase (ALT/SGPT) 21 U/L (16-63) Alkaline Phosphatase 53 U/L (46-116) C-Reactive Protein, Quantitative 137.1 mg/L (0-3.3) Total Protein 7.0 g/dL (6.4-8.2) Albumin 2.5 g/dL (3.4-5.0) Albumin/Globulin Ratio 0.6 (1.0-1.7) Urine Collection Type Unknown Urine Color Yellow Urine Clarity Clear Urine pH 6.0 Urine Specific [place] 1.015 Urine Protein Negative mg/dL (NEG-TRACE) Urine Glucose (UA) Negative mg/dL (NEG) Urine Ketones (Stick) Negative mg/dL (NEG) Urine Blood Negative (NEG) Urine Nitrite Negative (NEG) Urine Bilirubin Negative (NEG) Urine Urobilinogen Dipstick 0.2 mg/dL (0.2 mg/dL) Urine Leukocyte Esterase Negative (NEG) Urine RBC 0 /HPF (0-2) Urine WBC 1-4 /HPF (0-4) Urine Squamous Epithelial Cells Occ /LPF Urine Bacteria 0 /HPF (0-FEW) Urine Mucus Slight /LPF Review of Systems Review of Systems ankle pain improved no n/v.d Comment Review of Relevant I have reviewed the following items dashawn (where applicable) has been applied. Labs Laboratory Tests Test 04/20/17 18:00 04/21/17 01:00 White Blood Count 8.9 x10^3/uL (4.0-11.0) Red Blood Count 4.45 x10^6/uL (4.30-5.70) Hemoglobin 14.3 g/dL (13.0-17.5) Hematocrit 43.3 % (39.0-53.0) Mean Corpuscular Volume 97 fL (79-100) Mean Corpuscular Hemoglobin 32 pg (25-35) Mean Corpuscular Hemoglobin Concent 33 g/dL (31-37) Red Cell Distribution Width 14.7 % (11.5-14.5) Platelet Count 208 x10^3/uL (140-400) Neutrophils (%) (Auto) 77 % (31-73) Lymphocytes (%) (Auto) 15 % (24-48) Monocytes (%) (Auto) 7 % (0-9) Eosinophils (%) (Auto) 1 % (0-3) Basophils (%) (Auto) 1 % (0-3) Neutrophils # (Auto) 6.8 x10^3uL (1.8-7.7) Lymphocytes # (Auto) 1.3 x10^3/uL (1.0-4.8) Monocytes # (Auto) 0.6 x10^3/uL (0.0-1.1) Eosinophils # (Auto) 0.1 x10^3/uL (0.0-0.7) Basophils # (Auto) 0.1 x10^3/uL (0.0-0.2) Erythrocyte Sedimentation Rate 50 (0-15) Sodium Level 139 mmol/L (136-145) Potassium Level 3.9 mmol/L (3.5-5.1) Chloride Level 102 mmol/L (98-107) Carbon Dioxide Level 28 mmol/L (21-32) Anion Gap 9 (6-14) Blood Urea Nitrogen 23 mg/dL (8-26) Creatinine 1.2 mg/dL (0.7-1.3) Estimated GFR (Cockcroft-Gault) 59.0 BUN/Creatinine Ratio 19 (6-20) Glucose Level 139 mg/dL (70-99) Uric Acid 3.1 mg/dL (3.5-7.2) Calcium Level 8.7 mg/dL (8.5-10.1) Total Bilirubin 0.5 mg/dL (0.2-1.0) Aspartate Amino Transf (AST/SGOT) 16 U/L (15-37) Alanine Aminotransferase (ALT/SGPT) 21 U/L (16-63) Alkaline Phosphatase 53 U/L (46-116) C-Reactive Protein, Quantitative 137.1 mg/L (0-3.3) Total Protein 7.0 g/dL (6.4-8.2) Albumin 2.5 g/dL (3.4-5.0) Albumin/Globulin Ratio 0.6 (1.0-1.7) Urine Collection Type Unknown Urine Color Yellow Urine Clarity Clear Urine pH 6.0 Urine Specific [place] 1.015 Urine Protein Negative mg/dL (NEG-TRACE) Urine Glucose (UA) Negative mg/dL (NEG) Urine Ketones (Stick) Negative mg/dL (NEG) Urine Blood Negative (NEG) Urine Nitrite Negative (NEG) Urine Bilirubin Negative (NEG) Urine Urobilinogen Dipstick 0.2 mg/dL (0.2 mg/dL) Urine Leukocyte Esterase Negative (NEG) Urine RBC 0 /HPF (0-2) Urine WBC 1-4 /HPF (0-4) Urine Squamous Epithelial Cells Occ /LPF Urine Bacteria 0 /HPF (0-FEW) Urine Mucus Slight /LPF Laboratory Tests Test 04/20/17 18:00 04/21/17 01:00 White Blood Count 8.9 x10^3/uL (4.0-11.0) Red Blood Count 4.45 x10^6/uL (4.30-5.70) Hemoglobin 14.3 g/dL (13.0-17.5) Hematocrit 43.3 % (39.0-53.0) Mean Corpuscular Volume 97 fL (79-100) Mean Corpuscular Hemoglobin 32 pg (25-35) Mean Corpuscular Hemoglobin Concent 33 g/dL (31-37) Red Cell Distribution Width 14.7 % (11.5-14.5) Platelet Count 208 x10^3/uL (140-400) Neutrophils (%) (Auto) 77 % (31-73) Lymphocytes (%) (Auto) 15 % (24-48) Monocytes (%) (Auto) 7 % (0-9) Eosinophils (%) (Auto) 1 % (0-3) Basophils (%) (Auto) 1 % (0-3) Neutrophils # (Auto) 6.8 x10^3uL (1.8-7.7) Lymphocytes # (Auto) 1.3 x10^3/uL (1.0-4.8) Monocytes # (Auto) 0.6 x10^3/uL (0.0-1.1) Eosinophils # (Auto) 0.1 x10^3/uL (0.0-0.7) Basophils # (Auto) 0.1 x10^3/uL (0.0-0.2) Erythrocyte Sedimentation Rate 50 (0-15) Sodium Level 139 mmol/L (136-145) Potassium Level 3.9 mmol/L (3.5-5.1) Chloride Level 102 mmol/L (98-107) Carbon Dioxide Level 28 mmol/L (21-32) Anion Gap 9 (6-14) Blood Urea Nitrogen 23 mg/dL (8-26) Creatinine 1.2 mg/dL (0.7-1.3) Estimated GFR (Cockcroft-Gault) 59.0 BUN/Creatinine Ratio 19 (6-20) Glucose Level 139 mg/dL (70-99) Uric Acid 3.1 mg/dL (3.5-7.2) Calcium Level 8.7 mg/dL (8.5-10.1) Total Bilirubin 0.5 mg/dL (0.2-1.0) Aspartate Amino Transf (AST/SGOT) 16 U/L (15-37) Alanine Aminotransferase (ALT/SGPT) 21 U/L (16-63) Alkaline Phosphatase 53 U/L (46-116) C-Reactive Protein, Quantitative 137.1 mg/L (0-3.3) Total Protein 7.0 g/dL (6.4-8.2) Albumin 2.5 g/dL (3.4-5.0) Albumin/Globulin Ratio 0.6 (1.0-1.7) Urine Collection Type Unknown Urine Color Yellow Urine Clarity Clear Urine pH 6.0 Urine Specific [place] 1.015 Urine Protein Negative mg/dL (NEG-TRACE) Urine Glucose (UA) Negative mg/dL (NEG) Urine Ketones (Stick) Negative mg/dL (NEG) Urine Blood Negative (NEG) Urine Nitrite Negative (NEG) Urine Bilirubin Negative (NEG) Urine Urobilinogen Dipstick 0.2 mg/dL (0.2 mg/dL) Urine Leukocyte Esterase Negative (NEG) Urine RBC 0 /HPF (0-2) Urine WBC 1-4 /HPF (0-4) Urine Squamous Epithelial Cells Occ /LPF Urine Bacteria 0 /HPF (0-FEW) Urine Mucus Slight /LPF Medications Current Medications Acetaminophen (Tylenol) 650 mg QHS PO Last administered on 04/20/17 21:40; Start 04/20/17 at 21:00 Apixaban (Eliquis) 5 mg BID PO ; Start 04/20/17 at 21:00; Stop 04/20/17 at 21:00 ; Status DC Aspirin (Ecotrin) 81 mg DAILY PO Last administered on 04/21/17 08:54; Start at 09:00 Atorvastatin Calcium (Lipitor) 10 mg QHS PO Last administered on 04/20/17 21: 40; Start 04/20/17 at 21:00 Fluticasone Propionate (Flonase) 2 spray DAILY NS ; Start 04/21/17 at 09:00 Lisinopril (Prinivil) 10 mg DAILY PO Last administered on 04/21/17 08:52; Start 04/20/17 at 17:30 Temazepam (Restoril) 30 mg QHS PO Last administered on 04/20/17 21:40; Start 04/20/17 at 21:00 Meloxicam (Mobic) 15 mg DAILY PO Last administered on 04/21/17 08:54; Start at 09:00 Multivitamins (Thera M Plus) 1 tab DAILY PO Last administered on 04/21/17 08: 51; Start 04/21/17 at 09:00 Non-Formulary Medication 440 mg QHS PRN PO PAIN; Start 04/20/17 at 17:15; Status UNV Fish Oil (Fish Oil) 1,000 mg BID PO Last administered on 04/21/17 08:54; Start 04/20/17 at 21:00 Pantoprazole Sodium (Protonix) 40 mg DAILYAC PO Last administered on 04/21/17 06:12; Start 04/20/17 at 17:30 Propranolol HCl (Inderal) 20 mg BID PO Last administered on 04/21/17 08:52; Start 04/20/17 at 21:00 Vancomycin HCl (Vanco Per Pharmacy) 1 each PRN DAILY PRN MC SEE COMMENTS Last administered on 04/20/17 18:50; Start 04/20/17 at 17:15 Colchicine (Colcrys) 0.6 mg 1X ONCE PO Last administered on 04/20/17 17:50; Start 04/20/17 at 17:30; Stop 04/20/17 at 17:31; Status DC Colchicine (Colcrys) 0.6 mg DAILY PO Last administered on 04/21/17 08:51; Start 04/21/17 at 09:00 Oxycodone/ Acetaminophen (Percocet 5/325) 1 tab PRN Q4HRS PRN PO PAIN Last administered on 04/20/17 17:53; Start 04/20/17 at 17:15 Vancomycin HCl 2 gm/Sodium Chloride 500 ml @ 250 mls/hr 1X ONCE IV Last administered on 04/20/17 17:54; Start 04/20/17 at 17:30; Stop 04/20/17 at 19:29 ; Status DC Vancomycin HCl 1.75 gm/Sodium Chloride 500 ml @ 250 mls/hr Q12H IV Last administered on 04/21/17 06:06; Start 04/21/17 at 06:00 Vancomycin HCl 1 each 1X ONCE MC ; Start 04/22/17 at 05:30; Stop 04/22/17 at 05 :31 Active Scripts Active Tramadol-Acetaminophn 37.5-325 (Tramadol Hcl/Acetaminophen) 1 Each Tablet 1-2 Tab PO Q4-6HRS Reported Fluticasone Propionate Nasal [place] (Fluticasone Propionate) 16 Gm [place].susp 2 [place] NS DAILY Eliquis (Apixaban) 5 Mg Tablet 5 Mg PO BID Temazepam 30 Mg Capsule 1 Cap PO QHS Amoxicillin 500 Mg Capsule 3 Cap PO 1X Aleve (Naproxen Sodium) 220 Mg Capsule 440 Mg PO QHS PRN Propranolol Hcl 20 Mg Tablet 1 Tab PO BID Lisinopril 10 Mg Tablet 1 Tab PO DAILY [facility]vs Fish Oil 1,200 Mg Softgel ([place]-3 Fatty Acids/Fish Oil) 1 Each Capsule 1 Each PO BID Aspir 81 (Aspirin) 81 Mg Tablet.dr 1 Tab PO DAILY Meloxicam 15 Mg Tablet 15 Mg PO DAILY Last dose given: 9:00 a.m. (celebrex) Next dose due: 11-02-14 9:00 a.m. Atorvastatin Calcium 10 Mg Tablet 10 Mg PO DAILY Last dose given: 10-31-14 Next dose due: tonight Glucosamine Hcl 1,500 Mg Tablet 1,500 Mg PO DAILY Not taken while in hosp. May resume at home as directed Omeprazole 40 Mg Capsule. 40 Mg PO BID Last dose given: 7:00 a.m. Next dose due: 11-02-14 7:00 a.m. Testosterone Cypionate 200 Mg/1 Ml Vial 200 Mg IM Q2WKS Not taken while in hosp. May resume at home as directed Multiple Vitamin (Multivitamin With Minerals) 1 Each Tablet 1 Each PO DAILY Last dose given: 9:00 a.m. Next dose due: 11-02-14 9:00 a.m. Allopurinol 300 Mg Tablet 300 Mg PO DAILY Last dose given: 9:00 a.m. Next dose due: 11-02-13 9:00 a.m. Acetaminophen 325 Mg Tablet 650 Mg PO QHS Not taken while in hosp May resume at home as directed as needed. Vitals/I & O Vital Sign - Last 24 Hours 04/20/17 04/20/17 04/20/17 04/20/17 15:40 17:50 17:53 18:36 Temp 97.6 97.6 97.6 97.6 Pulse 53 53 Resp 18 16 18 B/P (MAP) 113/90 (98) 149/81 113/90 (98) Pulse Ox 96 96 O2 Delivery Room Air Room Air Room Air 04/20/17 04/20/17 04/20/17 04/20/17 18:53 19:00 20:11 20:30 Temp 99.3 99.3 Pulse 72 Resp 18 20 B/P (MAP) 132/70 (90) Pulse Ox 94 O2 Delivery Room Air Room Air Room Air Room Air 04/20/17 04/20/17 04/21/17 04/21/17 21:39 23:00 03:00 07:00 Temp 97.0 98.4 100.6 97.0 98.4 100.6 Pulse 72 75 74 94 Resp 20 20 20 B/P (MAP) 132/70 122/59 (80) 153/78 (103) 143/93 (110) Pulse Ox 90 96 94 O2 Delivery Room Air Room Air Room Air 04/21/17 04/21/17 04/21/17 04/21/17 08:00 08:52 08:52 11:00 Temp 97.5 97.5 Pulse 94 94 70 Resp 19 B/P (MAP) 143/93 143/93 128/68 (88) Pulse Ox 95 O2 Delivery Room Air Room Air Intake and Output 04/20/17 04/20/17 04/21/17 15:00 23:00 07:00 Intake Total 360 ml Output Total 1040 ml Balance -680 ml MIGDALIA CHERY MD Apr 21, 2017 12:20
[2017-04-21] MEDS: VANCOMYCIN PER PHARMACY MC PRN (13:44)
[2017-04-21 15:18] VITALS: BP 172/93
--- NOTE | 2017-04-21 15:46 | PDOC ---
Infectious Disease Note Vital Sign Vital Signs Vital Signs Date Time Temp Pulse Resp B/P (MAP) Pulse Ox O2 Delivery O2 Flow Rate FiO2 04/21/17 15:18 97.9 68 20 172/93 (119) 96 Room Air 97.9 Labs Lab Laboratory Tests Test 04/20/17 18:00 04/21/17 01:00 White Blood Count 8.9 x10^3/uL (4.0-11.0) Red Blood Count 4.45 x10^6/uL (4.30-5.70) Hemoglobin 14.3 g/dL (13.0-17.5) Hematocrit 43.3 % (39.0-53.0) Mean Corpuscular Volume 97 fL (79-100) Mean Corpuscular Hemoglobin 32 pg (25-35) Mean Corpuscular Hemoglobin Concent 33 g/dL (31-37) Red Cell Distribution Width 14.7 % (11.5-14.5) Platelet Count 208 x10^3/uL (140-400) Neutrophils (%) (Auto) 77 % (31-73) Lymphocytes (%) (Auto) 15 % (24-48) Monocytes (%) (Auto) 7 % (0-9) Eosinophils (%) (Auto) 1 % (0-3) Basophils (%) (Auto) 1 % (0-3) Neutrophils # (Auto) 6.8 x10^3uL (1.8-7.7) Lymphocytes # (Auto) 1.3 x10^3/uL (1.0-4.8) Monocytes # (Auto) 0.6 x10^3/uL (0.0-1.1) Eosinophils # (Auto) 0.1 x10^3/uL (0.0-0.7) Basophils # (Auto) 0.1 x10^3/uL (0.0-0.2) Erythrocyte Sedimentation Rate 50 (0-15) Sodium Level 139 mmol/L (136-145) Potassium Level 3.9 mmol/L (3.5-5.1) Chloride Level 102 mmol/L (98-107) Carbon Dioxide Level 28 mmol/L (21-32) Anion Gap 9 (6-14) Blood Urea Nitrogen 23 mg/dL (8-26) Creatinine 1.2 mg/dL (0.7-1.3) Estimated GFR (Cockcroft-Gault) 59.0 BUN/Creatinine Ratio 19 (6-20) Glucose Level 139 mg/dL (70-99) Uric Acid 3.1 mg/dL (3.5-7.2) Calcium Level 8.7 mg/dL (8.5-10.1) Total Bilirubin 0.5 mg/dL (0.2-1.0) Aspartate Amino Transf (AST/SGOT) 16 U/L (15-37) Alanine Aminotransferase (ALT/SGPT) 21 U/L (16-63) Alkaline Phosphatase 53 U/L (46-116) C-Reactive Protein, Quantitative 137.1 mg/L (0-3.3) Total Protein 7.0 g/dL (6.4-8.2) Albumin 2.5 g/dL (3.4-5.0) Albumin/Globulin Ratio 0.6 (1.0-1.7) Urine Collection Type Unknown Urine Color Yellow Urine Clarity Clear Urine pH 6.0 Urine Specific [place] 1.015 Urine Protein Negative mg/dL (NEG-TRACE) Urine Glucose (UA) Negative mg/dL (NEG) Urine Ketones (Stick) Negative mg/dL (NEG) Urine Blood Negative (NEG) Urine Nitrite Negative (NEG) Urine Bilirubin Negative (NEG) Urine Urobilinogen Dipstick 0.2 mg/dL (0.2 mg/dL) Urine Leukocyte Esterase Negative (NEG) Urine RBC 0 /HPF (0-2) Urine WBC 1-4 /HPF (0-4) Urine Squamous Epithelial Cells Occ /LPF Urine Bacteria 0 /HPF (0-FEW) Urine Mucus Slight /LPF Objective Assessment Rt ankle pain and redness and swelling, ,likely twisted/sprained, pseudogout possible , doubt infection Fever sec to inflammation HTN Plan Plan of Care no need for antibiotics need MRI d/w CAL Wolfe MD Apr 21, 2017 15:46
[2017-04-21 19:00] VITALS: BP 135/71
--- NOTE | 2017-04-21 19:11 | PDOC2 ---
CONSULT Date of Consult Date of Consult DATE: 04/21/17 TIME: 19:05 Reason for Consult Reason for Consult: Abnormal EKG Referring Physician Referring Physician: Dr Lou Identification/Chief Complaint Chief Complaint Septic joint Problems: History of Present Illness Reason for Visit: This patient is a 76-year-old gentleman with a known history of hypertension and paroxysmal atrial fibrillation. He has been on anticoagulation and treated medically for some time. He has a known right bundle branch block that is long-standing as well as frequent PVCs. He came in with a right ankle swollen red and very tender with exquisite pain. He had been seen by the orthopod as an outpatient and then came in for further workup and treatment. After he arrived he was found to have an abnormal EKG. I evaluated the EKG and it shows the patient to be in sinus rhythm with very frequent ectopy which causes the irregularity of his pulse. There is also a right bundle branch block present which is old. The patient denies any chest pains, denies any dyspnea, denies any palpitations , denies any loss of consciousness. All of the patient's complaint have to do with his foot and ankle Past Medical History Cardiovascular: AFIB, HTN GI: GERD Musculoskeletal: low back pain Rheumatologic: Gout Family History Family History: Coronary Artery Disease Social History No ALCOHOL: none Drugs: None Current Medications Current Medications Current Medications Acetaminophen (Tylenol) 650 mg QHS PO Last administered on 04/20/17 21:40; Start 04/20/17 at 21:00 Apixaban (Eliquis) 5 mg BID PO ; Start 04/20/17 at 21:00; Stop 04/20/17 at 21:00 ; Status DC Aspirin (Ecotrin) 81 mg DAILY PO Last administered on 04/21/17 08:54; Start at 09:00 Atorvastatin Calcium (Lipitor) 10 mg QHS PO Last administered on 04/20/17 21: 40; Start 04/20/17 at 21:00 Fluticasone Propionate (Flonase) 2 spray DAILY NS ; Start 04/21/17 at 09:00 Lisinopril (Prinivil) 10 mg DAILY PO Last administered on 04/21/17 08:52; Start 04/20/17 at 17:30 Temazepam (Restoril) 30 mg QHS PO Last administered on 04/20/17 21:40; Start 04/20/17 at 21:00 Meloxicam (Mobic) 15 mg DAILY PO Last administered on 04/21/17 08:54; Start at 09:00 Multivitamins (Thera M Plus) 1 tab DAILY PO Last administered on 04/21/17 08: 51; Start 04/21/17 at 09:00 Non-Formulary Medication 440 mg QHS PRN PO PAIN; Start 04/20/17 at 17:15; Status UNV Fish Oil (Fish Oil) 1,000 mg BID PO Last administered on 04/21/17 08:54; Start 04/20/17 at 21:00 Pantoprazole Sodium (Protonix) 40 mg DAILYAC PO Last administered on 04/21/17 06:12; Start 04/20/17 at 17:30 Propranolol HCl (Inderal) 20 mg BID PO Last administered on 04/21/17 08:52; Start 04/20/17 at 21:00 Vancomycin HCl (Vanco Per Pharmacy) 1 each PRN DAILY PRN MC SEE COMMENTS Last administered on 04/21/17 13:44; Start 04/20/17 at 17:15 Colchicine (Colcrys) 0.6 mg 1X ONCE PO Last administered on 04/20/17 17:50; Start 04/20/17 at 17:30; Stop 04/20/17 at 17:31; Status DC Colchicine (Colcrys) 0.6 mg DAILY PO Last administered on 04/21/17 08:51; Start 04/21/17 at 09:00 Oxycodone/ Acetaminophen (Percocet 5/325) 1 tab PRN Q4HRS PRN PO PAIN Last administered on 04/20/17 17:53; Start 04/20/17 at 17:15 Vancomycin HCl 2 gm/Sodium Chloride 500 ml @ 250 mls/hr 1X ONCE IV Last administered on 04/20/17 17:54; Start 04/20/17 at 17:30; Stop 04/20/17 at 19:29 ; Status DC Vancomycin HCl 1.75 gm/Sodium Chloride 500 ml @ 250 mls/hr Q12H IV Last administered on 04/21/17 17:38; Start 04/21/17 at 06:00 Vancomycin HCl 1 each 1X ONCE MC ; Start 04/22/17 at 05:30; Stop 04/22/17 at 05 :31 Active Scripts Active Tramadol-Acetaminophn 37.5-325 (Tramadol Hcl/Acetaminophen) 1 Each Tablet 1-2 Tab PO Q4-6HRS Reported Fluticasone Propionate Nasal [place] (Fluticasone Propionate) 16 Gm [place].susp 2 [place] NS DAILY Eliquis (Apixaban) 5 Mg Tablet 5 Mg PO BID Temazepam 30 Mg Capsule 1 Cap PO QHS Amoxicillin 500 Mg Capsule 3 Cap PO 1X Aleve (Naproxen Sodium) 220 Mg Capsule 440 Mg PO QHS PRN Propranolol Hcl 20 Mg Tablet 1 Tab PO BID Lisinopril 10 Mg Tablet 1 Tab PO DAILY Cvs Fish Oil 1,200 Mg Softgel ([place]-3 Fatty Acids/Fish Oil) 1 Each Capsule 1 Each PO BID Aspir 81 (Aspirin) 81 Mg Tablet.dr 1 Tab PO DAILY Meloxicam 15 Mg Tablet 15 Mg PO DAILY Last dose given: 9:00 a.m. (celebrex) Next dose due: 11-02-14 9:00 a.m. Atorvastatin Calcium 10 Mg Tablet 10 Mg PO DAILY Last dose given: 10-31-14 Next dose due: tonight Glucosamine Hcl 1,500 Mg Tablet 1,500 Mg PO DAILY Not taken while in hosp. May resume at home as directed Omeprazole 40 Mg Capsule.dr 40 Mg PO BID Last dose given: 7:00 a.m. Next dose due: 11-02-14 7:00 a.m. Testosterone Cypionate 200 Mg/1 Ml Vial 200 Mg IM Q2WKS Not taken while in hosp. May resume at home as directed Multiple Vitamin (Multivitamin With Minerals) 1 Each Tablet 1 Each PO DAILY Last dose given: 9:00 a.m. Next dose due: 11-02-14 9:00 a.m. Allopurinol 300 Mg Tablet 300 Mg PO DAILY Last dose given: 9:00 a.m. Next dose due: 11-02-13 9:00 a.m. Acetaminophen 325 Mg Tablet 650 Mg PO QHS Not taken while in hosp May resume at home as directed as needed. Allergies Allergies: Coded Allergies: No Known Drug Allergies (Unverified , 10/16/14) Physical Exam General: Alert, Oriented X3, Cooperative HEENT: Atraumatic, PERRLA, Other (poor dentition) Lungs: Clear to auscultation Heart: Other (irregular rhythm due to frequent ectopy with episodes of regular rhythm. S1-S2, no murmur.) Vitals VITALS Vital Signs Date Time Temp Pulse Resp B/P (MAP) Pulse Ox O2 Delivery O2 Flow Rate FiO2 04/21/17 15:18 97.9 68 20 172/93 (119) 96 Room Air 97.9 Labs Labs Laboratory Tests Test 04/20/17 18:00 04/21/17 01:00 White Blood Count 8.9 x10^3/uL (4.0-11.0) Red Blood Count 4.45 x10^6/uL (4.30-5.70) Hemoglobin 14.3 g/dL (13.0-17.5) Hematocrit 43.3 % (39.0-53.0) Mean Corpuscular Volume 97 fL (79-100) Mean Corpuscular Hemoglobin 32 pg (25-35) Mean Corpuscular Hemoglobin Concent 33 g/dL (31-37) Red Cell Distribution Width 14.7 % (11.5-14.5) Platelet Count 208 x10^3/uL (140-400) Neutrophils (%) (Auto) 77 % (31-73) Lymphocytes (%) (Auto) 15 % (24-48) Monocytes (%) (Auto) 7 % (0-9) Eosinophils (%) (Auto) 1 % (0-3) Basophils (%) (Auto) 1 % (0-3) Neutrophils # (Auto) 6.8 x10^3uL (1.8-7.7) Lymphocytes # (Auto) 1.3 x10^3/uL (1.0-4.8) Monocytes # (Auto) 0.6 x10^3/uL (0.0-1.1) Eosinophils # (Auto) 0.1 x10^3/uL (0.0-0.7) Basophils # (Auto) 0.1 x10^3/uL (0.0-0.2) Erythrocyte Sedimentation Rate 50 (0-15) Sodium Level 139 mmol/L (136-145) Potassium Level 3.9 mmol/L (3.5-5.1) Chloride Level 102 mmol/L (98-107) Carbon Dioxide Level 28 mmol/L (21-32) Anion Gap 9 (6-14) Blood Urea Nitrogen 23 mg/dL (8-26) Creatinine 1.2 mg/dL (0.7-1.3) Estimated GFR (Cockcroft-Gault) 59.0 BUN/Creatinine Ratio 19 (6-20) Glucose Level 139 mg/dL (70-99) Uric Acid 3.1 mg/dL (3.5-7.2) Calcium Level 8.7 mg/dL (8.5-10.1) Total Bilirubin 0.5 mg/dL (0.2-1.0) Aspartate Amino Transf (AST/SGOT) 16 U/L (15-37) Alanine Aminotransferase (ALT/SGPT) 21 U/L (16-63) Alkaline Phosphatase 53 U/L (46-116) C-Reactive Protein, Quantitative 137.1 mg/L (0-3.3) Total Protein 7.0 g/dL (6.4-8.2) Albumin 2.5 g/dL (3.4-5.0) Albumin/Globulin Ratio 0.6 (1.0-1.7) Urine Collection Type Unknown Urine Color Yellow Urine Clarity Clear Urine pH 6.0 Urine Specific [place] 1.015 Urine Protein Negative mg/dL (NEG-TRACE) Urine Glucose (UA) Negative mg/dL (NEG) Urine Ketones (Stick) Negative mg/dL (NEG) Urine Blood Negative (NEG) Urine Nitrite Negative (NEG) Urine Bilirubin Negative (NEG) Urine Urobilinogen Dipstick 0.2 mg/dL (0.2 mg/dL) Urine Leukocyte Esterase Negative (NEG) Urine RBC 0 /HPF (0-2) Urine WBC 1-4 /HPF (0-4) Urine Squamous Epithelial Cells Occ /LPF Urine Bacteria 0 /HPF (0-FEW) Urine Mucus Slight /LPF Urine Random Creatinine 61.8 mg/dL (Not Estab.) Urine Random Total Protein 11.0 mg/dL (Not Estab.) Laboratory Tests Test 04/21/17 01:00 Urine Collection Type Unknown Urine Color Yellow Urine Clarity Clear Urine pH 6.0 Urine Specific [place] 1.015 Urine Protein Negative mg/dL (NEG-TRACE) Urine Glucose (UA) Negative mg/dL (NEG) Urine Ketones (Stick) Negative mg/dL (NEG) Urine Blood Negative (NEG) Urine Nitrite Negative (NEG) Urine Bilirubin Negative (NEG) Urine Urobilinogen Dipstick 0.2 mg/dL (0.2 mg/dL) Urine Leukocyte Esterase Negative (NEG) Urine RBC 0 /HPF (0-2) Urine WBC 1-4 /HPF (0-4) Urine Squamous Epithelial Cells Occ /LPF Urine Bacteria 0 /HPF (0-FEW) Urine Mucus Slight /LPF Urine Random Creatinine 61.8 mg/dL (Not Estab.) Urine Random Total Protein 11.0 mg/dL (Not Estab.) Assessment/Plan Assessment/Plan This patient with a known history of paroxysmal atrial fibrillation comes in with a septic ankle or foot or possibly a gouty attack. Cardiac-nunez the patient is compensated and I agree with the present plan. May hold anticoagulation for now. Thank you very much for asking me to participate in the care of this patient MARQUEZ NIX MD Apr 21, 2017 19:11
[2017-04-21] MEDS: ATORVASTATIN CALCIUM 10 MG TABLET. PO SCH (21:56)
[2017-04-21] MEDS: TEMAZEPAM 15 MG CAPSULE PO SCH (21:56)
[2017-04-21] MEDS: ACETAMINOPHEN 325 MG TABLET. PO SCH (21:56)
[2017-04-21 23:00] VITALS: BP 128/70
[2017-04-22 03:00] VITALS: BP 138/82
[2017-04-22 05:51] LABS: BASO % 1 % (0-3); EOS % 1 % (0-3); HEMATOCRIT 42.3 % (39.0-53.0); HEMOGLOBIN 13.8 g/dL (13.0-17.5); LYMPH # 1.5 x10^3/uL (1.0-4.8); LYMPH % 21 % (24-48); MEAN CORPUSCULAR HEMOGLOBIN 32 pg (25-35); MEAN CORPUSCULAR HGB CONC 33 g/dL (31-37); MEAN CORPUSCULAR VOLUME 98 fL (79-100); MONO % 8 % (0-9); NEUT % 69 % (31-73); PLATELET COUNT 190 x10^3/uL (140-400); RED BLOOD COUNT 4.31 x10^6/uL (4.30-5.70); RED CELL DISTRIBUTION WIDTH 14.3 % (11.5-14.5); WHITE BLOOD COUNT 7.4 x10^3/uL (4.0-11.0)
[2017-04-22 06:10] LABS: CALCIUM 8.5 mg/dL (8.5-10.1); CREATININE 1.1 mg/dL (0.7-1.3); GFR 65.3; POTASSIUM 3.8 mmol/L (3.5-5.1)
[2017-04-22] MEDS: VANCOMYCIN PER PHARMACY MC PRN (06:17)
[2017-04-22] MEDS: VANCOMYCIN 1.75 GM in IV NORMAL SALINE 500ML BAG 500 ML IV SCH (06:33)
[2017-04-22] MEDS: PANTOPRAZOLE 40 MG TABLET.DR. PO SCH (06:34)
--- NOTE | 2017-04-22 06:45 | CONS ---
DATE OF CONSULTATION: 04/21/2017 REQUESTING PHYSICIANS: Dr. Lou and Dr. Hernandez. REASON FOR CONSULTATION: Question infection in the ankle. HISTORY OF PRESENT ILLNESS: This is a 76-year-old gentleman with a history of hypertension, who a week ago, was walking on grass ____ event, where he subsequently noticed that he started swelling and not able to push on the gas pedal that evening. The patient denies any twisting injury. Denies any nausea, vomiting, or diarrhea. Denies any chest pain, shortness of breath, abdominal pain, urinary symptoms, or bowel symptoms. The patient subsequently was seen, the patient was put on steroids and cultures sent. The patient does take allopurinol for his kidney stones, he says for years. The patient then was seen by Dr. Hernandez and a needle aspiration of the ankle was done, which showed 5000 cells, and Gram stain was negative. Crystal analysis was negative. The patient was admitted to get an MRI and further management and was started on vancomycin. The patient is feeling better. The patient wants to go home since the MRI machine is not working today and he either will have to wait for that or get MRI as an outpatient. The patient denies any other complaints or problems. PAST MEDICAL HISTORY: Positive for, as I mentioned, hypertension, takes allopurinol for kidney stones, gastroesophageal reflux disease, and he has had gout 8 years ago, he says. SOCIAL HISTORY: Negative for smoking, alcohol, and illicit drug use. ALLERGIES: No known drug allergies. CURRENT MEDICATIONS: Reviewed. The patient is on vancomycin. REVIEW OF SYSTEMS: As per HPI. All other systems reviewed are negative. PHYSICAL EXAMINATION: GENERAL: Alert and oriented gentleman, not in distress. VITAL SIGNS: Stable, afebrile. The patient did have T-max of 100.6. HEENT: Anicteric. NECK: Supple, no JVP, and no lymphadenopathy. LUNGS: Clear. HEART: S1, S2 regular. ABDOMEN: Benign. EXTREMITIES: No edema or cyanosis, except at the right ankle, the patient does have redness on the lateral part of the ankle with swelling and tenderness. NEUROLOGIC: The patient is neurologically intact. SKIN: Unremarkable. LABORATORY DATA: White count is normal. Sed rate is 50, BUN and creatinine is normal. Urinalysis is unremarkable. The ankle aspiration is in the verbal report with my communication with Dr. Hernandez. IMPRESSION: 1. Right ankle inflammation and redness. Most likely, he twisted his ankle and he has subcutaneous hemorrhage with 5000 wbc's in the joint - it is not infection. Pseudogout is a possibility, but does not have a classic appearance. 2. Hypertension. 3. History of gout. 4. Low-grade fever because of the inflammation. RECOMMENDATIONS: I do not see the need for antibiotics. The patient needs MRI and followup. The patient can be discharged home today if he prefers or tomorrow. I did discuss personally with Dr. Hernandez. Thank you very much, Dr. Lou and Dr. Hernandez for giving me the opportunity to participate in this patient's care. CAL JACKSON MD DR: LORE/lilia JOB#: [id number] / [id number]
[2017-04-22 07:00] VITALS: BP 107/59
[2017-04-22] MEDS: MELOXICAM 7.5 MG TABLET PO SCH (08:56)
[2017-04-22] MEDS: OMEGA-3 FATTY ACIDS/FISH OIL 1,000 MG CAPSULE. PO SCH (08:56)
[2017-04-22] MEDS: ASPIRIN ENTERIC COATED 81 MG TABLET.DR. PO SCH (08:56)
[2017-04-22] MEDS: MULTIVITAMIN with MINERAL TABLET. PO SCH (08:57)
[2017-04-22] MEDS: FLUTICASONE 50MCG/NASAL SPRAY 16GM BOTTLE. NS SCH (08:57)
[2017-04-22] MEDS: COLCHICINE 0.6 MG TABLET PO SCH (08:57)
[2017-04-22] MEDS: LISINOPRIL 10 MG TABLET PO SCH (09:00)
[2017-04-22] MEDS: PROPRANOLOL 10 MG TABLET. PO SCH (09:00)
[2017-04-22 11:00] VITALS: BP 97/56
--- NOTE | 2017-04-22 13:49 | PDOC3 ---
Discharge Summary [facility] Date of Admission: Apr 20, 2017 Discharge Date: Apr 22, 2017 Admitting Diagnosis acute right ankle pain with swelling and redness x1 week,, possible 2/2 sprain vs. pseudogout, but pt denies trauma septic joint less likely Hx Gout years ago on left foot HTn, Afib, on eliquis mod malnutrition w/ hypoalbuminemia in obesity, BMI 32 Problems: CONSULTS id dr. hernandez Brief Hospital Course Mr. Martinez is a 76 old M, was sent from dr. Hernandez office on Thursday for right ankle pain for MRI. He said he saw dr. Hernandez 1 week ago , got joint aspiration, but nobody called him for result, but then he said no crystals ( conflicted to me) . denies trauma. however, KEO down service since weekend. UA low. pt takes some NSIADS, COlchicine, no improvement. ID consulted, no abx. pt wants to go home if MRI cannot be done now and no ortho intervention waiting for dr. Hernandez comes to see pt today. dc if no intervention. dc time 35min . General: Alert, Oriented X3, Cooperative Heart: No murmurs, Other (irreg) Lungs: Clear Abdomen: Normal bowel sounds, Soft Extremities: right ankle moderate erythematous, with swollen right ankle and right foot. Skin: No rashes, No breakdown Patient History: FH: Down syndrome G8 SON Family history: Alzheimer's disease (situation) 32 MOTHER Family history: Cardiovascular disease (situation) 33 FATHER Family history: Diabetes mellitus (situation) 33 FATHER 32 MOTHER Family history: Hypertension (situation) 33 FATHER No Family History of: Family history: Crohn's disease (situation) Problems: Disposition home CONDITION AT DISCHARGE: Improved Diet regular Scheduled Acetaminophen (Acetaminophen), 650 MG PO QHS, (Reported) Allopurinol (Allopurinol), 300 MG PO DAILY, (Reported) Apixaban (Eliquis), 5 MG PO BID, (Reported) Aspirin (Aspir 81), 1 TAB PO DAILY, (Reported) Atorvastatin Calcium (Atorvastatin Calcium), 10 MG PO DAILY, (Reported) Fluticasone Propionate (Fluticasone Propionate Nasal [place]), 2 SPRAY NS DAILY, ( Reported) Glucosamine Hcl (Glucosamine Hcl), 1,500 MG PO DAILY, (Reported) Lisinopril (Lisinopril), 1 TAB PO DAILY, (Reported) Meloxicam (Meloxicam), 15 MG PO DAILY, (Reported) Multivitamin With Minerals (Multiple Vitamin), 1 EACH PO DAILY, (Reported) [place]-3 Fatty Acids/Fish Oil (Cvs Fish Oil 1,200 Mg Softgel), 1 EACH PO BID, ( Reported) Omeprazole (Omeprazole), 40 MG PO BID, (Reported) Propranolol Hcl (Propranolol Hcl), 1 TAB PO BID, (Reported) Temazepam (Temazepam), 1 CAP PO QHS, (Reported) Testosterone Cypionate (Testosterone Cypionate), 200 MG IM Q2WKS, (Reported) Tramadol Hcl/Acetaminophen (Tramadol-Acetaminophn 37.5-325), 1-2 TAB PO Q4-6HRS Scheduled PRN Naproxen Sodium (Aleve), 440 MG PO QHS PRN for PAIN, (Reported) Discontinued Medications Amoxicillin (Amoxicillin), 3 CAP PO 1X, (Reported) Follow Up ELIZABETH Maher MD Apr 22, 2017 13:49
--- NOTE | 2017-04-22 14:46 | PDOC ---
PROGRESS NOTES Subjective Subjective States ankle is better today and he has no pain. He is ready to go home. Objective Vital Signs Vital Signs Date Time Temp Pulse Resp B/P (MAP) Pulse Ox O2 Delivery O2 Flow Rate FiO2 04/22/17 11:00 98.5 34 18 97/56 (70) 97 Room Air 98.5 Physical Exam Sitting up in chair. Right ankle erythema and swelling improved today. Calf soft and NT with neg Maggie's. Good df/pf. NVI. Labs Laboratory Tests Test 04/20/17 18:00 04/21/17 01:00 04/22/17 05:30 White Blood Count 8.9 x10^3/uL (4.0-11.0) 7.4 x10^3/uL (4.0-11.0) Red Blood Count 4.45 x10^6/uL (4.30-5.70) 4.31 x10^6/uL (4.30-5.70) Hemoglobin 14.3 g/dL (13.0-17.5) 13.8 g/dL (13.0-17.5) Hematocrit 43.3 % (39.0-53.0) 42.3 % (39.0-53.0) Mean Corpuscular Volume 97 fL (79-100) 98 fL (79-100) Mean Corpuscular Hemoglobin 32 pg (25-35) 32 pg (25-35) Mean Corpuscular Hemoglobin Concent 33 g/dL (31-37) 33 g/dL (31-37) Red Cell Distribution Width 14.7 % (11.5-14.5) 14.3 % (11.5-14.5) Platelet Count 208 x10^3/uL (140-400) 190 x10^3/uL (140-400) Neutrophils (%) (Auto) 77 % (31-73) 69 % (31-73) Lymphocytes (%) (Auto) 15 % (24-48) 21 % (24-48) Monocytes (%) (Auto) 7 % (0-9) 8 % (0-9) Eosinophils (%) (Auto) 1 % (0-3) 1 % (0-3) Basophils (%) (Auto) 1 % (0-3) 1 % (0-3) Neutrophils # (Auto) 6.8 x10^3uL (1.8-7.7) 5.1 x10^3uL (1.8-7.7) Lymphocytes # (Auto) 1.3 x10^3/uL (1.0-4.8) 1.5 x10^3/uL (1.0-4.8) Monocytes # (Auto) 0.6 x10^3/uL (0.0-1.1) 0.6 x10^3/uL (0.0-1.1) Eosinophils # (Auto) 0.1 x10^3/uL (0.0-0.7) 0.1 x10^3/uL (0.0-0.7) Basophils # (Auto) 0.1 x10^3/uL (0.0-0.2) 0.0 x10^3/uL (0.0-0.2) Erythrocyte Sedimentation Rate 50 (0-15) Sodium Level 139 mmol/L (136-145) 139 mmol/L (136-145) Potassium Level 3.9 mmol/L (3.5-5.1) 3.8 mmol/L (3.5-5.1) Chloride Level 102 mmol/L (98-107) 102 mmol/L (98-107) Carbon Dioxide Level 28 mmol/L (21-32) 27 mmol/L (21-32) Anion Gap 9 (6-14) 10 (6-14) Blood Urea Nitrogen 23 mg/dL (8-26) 19 mg/dL (8-26) Creatinine 1.2 mg/dL (0.7-1.3) 1.1 mg/dL (0.7-1.3) Estimated GFR (Cockcroft-Gault) 59.0 65.3 BUN/Creatinine Ratio 19 (6-20) Glucose Level 139 mg/dL (70-99) 100 mg/dL (70-99) Uric Acid 3.1 mg/dL (3.5-7.2) Calcium Level 8.7 mg/dL (8.5-10.1) 8.5 mg/dL (8.5-10.1) Total Bilirubin 0.5 mg/dL (0.2-1.0) Aspartate Amino Transf (AST/SGOT) 16 U/L (15-37) Alanine Aminotransferase (ALT/SGPT) 21 U/L (16-63) Alkaline Phosphatase 53 U/L (46-116) C-Reactive Protein, Quantitative 137.1 mg/L (0-3.3) Total Protein 7.0 g/dL (6.4-8.2) Albumin 2.5 g/dL (3.4-5.0) Albumin/Globulin Ratio 0.6 (1.0-1.7) Urine Collection Type Unknown Urine Color Yellow Urine Clarity Clear Urine pH 6.0 Urine Specific [place] 1.015 Urine Protein Negative mg/dL (NEG-TRACE) Urine Glucose (UA) Negative mg/dL (NEG) Urine Ketones (Stick) Negative mg/dL (NEG) Urine Blood Negative (NEG) Urine Nitrite Negative (NEG) Urine Bilirubin Negative (NEG) Urine Urobilinogen Dipstick 0.2 mg/dL (0.2 mg/dL) Urine Leukocyte Esterase Negative (NEG) Urine RBC 0 /HPF (0-2) Urine WBC 1-4 /HPF (0-4) Urine Squamous Epithelial Cells Occ /LPF Urine Bacteria 0 /HPF (0-FEW) Urine Mucus Slight /LPF Urine Random Creatinine 61.8 mg/dL (Not Estab.) Urine Random Total Protein 11.0 mg/dL (Not Estab.) Vancomycin Level Trough 18.0 mcg/mL (10.0-20.0) Vancomycin Last Dose Date 04/21/17 Vancomycin Last Dose Time 1800 Laboratory Tests Test 04/22/17 05:30 White Blood Count 7.4 x10^3/uL (4.0-11.0) Red Blood Count 4.31 x10^6/uL (4.30-5.70) Hemoglobin 13.8 g/dL (13.0-17.5) Hematocrit 42.3 % (39.0-53.0) Mean Corpuscular Volume 98 fL (79-100) Mean Corpuscular Hemoglobin 32 pg (25-35) Mean Corpuscular Hemoglobin Concent 33 g/dL (31-37) Red Cell Distribution Width 14.3 % (11.5-14.5) Platelet Count 190 x10^3/uL (140-400) Neutrophils (%) (Auto) 69 % (31-73) Lymphocytes (%) (Auto) 21 % (24-48) Monocytes (%) (Auto) 8 % (0-9) Eosinophils (%) (Auto) 1 % (0-3) Basophils (%) (Auto) 1 % (0-3) Neutrophils # (Auto) 5.1 x10^3uL (1.8-7.7) Lymphocytes # (Auto) 1.5 x10^3/uL (1.0-4.8) Monocytes # (Auto) 0.6 x10^3/uL (0.0-1.1) Eosinophils # (Auto) 0.1 x10^3/uL (0.0-0.7) Basophils # (Auto) 0.0 x10^3/uL (0.0-0.2) Sodium Level 139 mmol/L (136-145) Potassium Level 3.8 mmol/L (3.5-5.1) Chloride Level 102 mmol/L (98-107) Carbon Dioxide Level 27 mmol/L (21-32) Anion Gap 10 (6-14) Blood Urea Nitrogen 19 mg/dL (8-26) Creatinine 1.1 mg/dL (0.7-1.3) Estimated GFR (Cockcroft-Gault) 65.3 Glucose Level 100 mg/dL (70-99) Calcium Level 8.5 mg/dL (8.5-10.1) Vancomycin Level Trough 18.0 mcg/mL (10.0-20.0) Vancomycin Last Dose Date 04/21/17 Vancomycin Last Dose Time 1800 Assessment Assessment Right ankle swelling. Possible gouty flare, although no crystals were seen Problems: Plan Plan of Care Pain, erythema, and swelling is better today. Aspiration done in office showed only 5,000 WBCs, so infection is unlikely. Could be gouty flare, although no crystals were seen. MRI is down at the hospital, so we will discharge patient to home and obtain outpatient MRI and call patient with results. No antibiotics needed. ROSSI LOPEZ Apr 22, 2017 14:46
== END 2017-04-22 14:40 | disposition home or self-care (01) | DRG 563 ==
LOC: 4 NORTH 14:37
PROVIDERS: ADMIT Internal Medicine; ATTEND Internal Medicine
DX: S93.401A Sprain of unspecified ligament of right ankle, initial encounter (principal); E44.0 Moderate protein-calorie malnutrition; K21.9 Gastro-esophageal reflux disease without esophagitis; I48.0 Paroxysmal atrial fibrillation; I45.10 Unspecified right bundle-branch block; I10 Essential (primary) hypertension; E66.9 Obesity, unspecified; Z68.32 Body mass index [BMI] 32.0-32.9, adult; Z82.0 Family history of epilepsy and other diseases of the nervous system; Z82.49 Family history of ischemic heart disease and other diseases of the circulatory system; Z87.442 Personal history of urinary calculi; Z83.3 Family history of diabetes mellitus; Y93.89 Activity, other specified; Y92.89 Other specified places as the place of occurrence of the external cause; Y99.8 Other external cause status
CPT/HCPCS: 36415; 80048; 80053; 80202; 81001; 82570; 84156; 84550; 85027; 85651; 86140; 93005; J3370; J7040

== ENCOUNTER → 2017-04-23 | Outpatient (CLI) | payer OTHER ==
[2017-04-22 11:00] VITALS: BP 97/56
--- NOTE | 2017-04-24 09:25 | KCIC ---
MR of the effusion. Swelling for 2 weeks. ankle Indication: Pain and swelling for 2 weeks.. Technique: Standard multiplanar sequences are obtained. Findings: Peroneal tendons: Mild peroneus longus tendinosis. Peroneus brevis tendinosis. No rupture. No dislocation. Lateral ligaments: Mild scarring of the anterior talofibular ligament and calcaneofibular ligament and posterior talofibular ligament. Tibiofibular syndesmosis:Intact. Medial tendons: Posterior tibial and flexor tendons are intact. Medial ligaments: Scarring of the deep fibers of the deltoid ligament. Anterior tendons: Anterior tibial and extensor tendons are intact. Achilles tendon: Intact Plantar aponeurosis: Mild hypointense thickening, compatible with mild chronic scarring or chronic plantar fasciitis. Subtalar joints: Patent Tarsal sinus: Intact Talar Dome: Intact Bones: Mild patchy marrow edema involving the tarsal bones. No focal aggressive bone destruction. No evidence of an acute macro fracture. Fluid: Moderate tibiotalar joint effusion. Fluid in the posterior subtalar recess. Joints: Mild degenerative changes about the visualized joints. Soft tissues: Diffuse soft tissue edema. Impression: 1. Chronic scarring of the lateral ankle ligaments and medial deltoid ligament. 2. Peroneus longus and brevis tendinosis. 3. Mild chronic plantar fasciitis. 4. Tibiotalar and posterior subtalar joint effusions. 5. Generalized soft tissue edema. 6. Mild generalized nonspecific bone marrow edema. Electronically signed by: Dylan Sosa MD (04/24/2017 9:22 AM) [id number]
== END | disposition home or self-care (01) ==
LOC: KCIC MRI 15:56
PROVIDERS: ATTEND Orthopaedic Surgery
DX: M72.2 Plantar fascial fibromatosis (principal); R60.0 Localized edema
CPT/HCPCS: 73721

== ENCOUNTER → 2017-09-30 | Outpatient (CLI) | payer OTHER | END | disposition home or self-care (01) | LOC: KCIC 12:19 | DX: S70.01XA Contusion of right hip, initial encounter (principal); M43.16 Spondylolisthesis, lumbar region; M43.17 Spondylolisthesis, lumbosacral region; M81.8 Other osteoporosis without current pathological fracture; M85.88 Other specified disorders of bone density and structure, other site; W19.XXXA Unspecified fall, initial encounter; Y93.89 Activity, other specified; Y92.89 Other specified places as the place of occurrence of the external cause; Y99.8 Other external cause status | CPT/HCPCS: 72100; 73502 ==

== ENCOUNTER → 2019-07-22 | Outpatient (CLI) | payer OTHER ==
[~2019-07-22] MED LIST changes: -GLUC1500 PO; +GLUC15006 PO; +OMEP40CA45 PO; -OMEP40CA5 PO
--- NOTE | 2019-07-22 16:27 | KCIC ---
EXAM: Cervical spine, 5 views. HISTORY: Arm numbness. COMPARISON: None. FINDINGS: 5 views of cervical spine are obtained. There is cervical kyphosis centered at C5. There is minimal anterolisthesis of C3 on C4 and C4 on C5. There is degenerative endplate remodeling with disc space narrowing and anterior osteophytosis C5-C6 and C6-C7. There is multilevel facet arthropathy. There is bilateral foraminal stenosis multiple levels. There is a tiny left cervical rib and prominent right C7 transverse process. IMPRESSION: 1. Multilevel degenerative change throughout the cervical spine, with associated foraminal stenosis at multiple levels. 2. No acute osseous finding. Electronically signed by: Delfina Benitez MD (07/22/2019 4:25 PM) [facility]
== END | disposition home or self-care (01) ==
LOC: KCIC 11:16
PROVIDERS: ATTEND Nurse Practitioner Family
DX: M43.12 Spondylolisthesis, cervical region (principal); M48.02 Spinal stenosis, cervical region; M25.78 Osteophyte, vertebrae; M40.292 Other kyphosis, cervical region; M12.88 Other specific arthropathies, not elsewhere classified, other specified site; M47.812 Spondylosis without myelopathy or radiculopathy, cervical region
CPT/HCPCS: 72050

== ENCOUNTER → 2019-10-11 | Outpatient (CLI) | payer MEDICARE ==
[~2019-10-11] MED LIST changes: +SIMV20TA18 PO; -SIMV20TA3 PO
--- NOTE | 2019-10-12 11:04 | SLEEP ---
DATE OF STUDY: 10/11/2019 PRIMARY CARE PHYSICIAN: Colette Maher, nurse practitioner REFERRING PHYSICIAN: Jose Luis Knox MD The patient is 78 years old who weighs 255 pounds with a BMI of 32. The patient's Hysham score was 3. The patient underwent a sleep study performed at [facility]. This was a split night study. During the night study, the patient spent 465 minutes in bed and slept for 275 minutes with a low sleep efficiency of 59%. Sleep latency was 22 minutes with a REM latency of 91 minutes. The patient's sleep architecture showed increased stage 1 and stage 2 sleep, absent slow wave and reduced REM sleep. During the initial diagnostic portion of the study, the patient slept for 158 minutes. During that time, there were no obstructive or central apneas, 1 mixed apnea and 100 hypopneas. The patient's AHI was 38 per hour with a supine AHI of 70 per hour and a REM AHI of 60 per hour. EKG monitoring revealed an average heart rate of 61 beats per minute. No sustained arrhythmias observed. PLMS were seen at index of 26 per hour and 4 per hour caused EEG arousals. Nocturnal oximetry study revealed an average oxygen saturation of 90%, the lowest of 83%. 41% of time oxygen saturation remained between 80% and 89%. The patient met the criteria for CPAP initiation. It was started at 5 cm water and titrated up to 7 cm water. At the final pressure, the patient slept for 46 minutes. The patient had supine as well as REM sleep. The patient's AHI was reduced to 4 per hour and oxygen saturation remained above 90%. The patient used medium size nasal pillows. IMPRESSION: 1. Severe sleep apnea-hypopnea syndrome at an AHI of 38 per hour. The patient's AHI during REM sleep was 60 per hour. 2. Nocturnal hypoxia secondary to obstructive sleep apnea, but resolved with CPAP. 3. Moderate periodic limb movements. RECOMMENDATIONS: 1. CPAP at 7 cm water completely eliminated the patient's sleep apnea and should be used on a nightly basis. 2. Follow up in 4-6 weeks to assess compliance with CPAP and to document clinical improvement. 3. Weight loss is advised. 4. Avoid DYNAMITER depressants. 5. Cautioned regarding driving until symptoms of sleep apnea resolve with the use of CPAP. 6. The PLMS does not need to be treated unless the patient has symptoms of restless legs during the day. JOSE LUIS KNOX MD DR: KEYANNA/lilia JOB#: [id number] / [id number] Colette Kiran
== END | disposition home or self-care (01) ==
LOC: SLPLAB 18:58
PROVIDERS: ATTEND Internal Medicine Critical Care Medicine
DX: G47.33 Obstructive sleep apnea (adult) (pediatric) (principal); G47.34 Idiopathic sleep related nonobstructive alveolar hypoventilation; G47.61 Periodic limb movement disorder
CPT/HCPCS: 95810